=== PATIENT | male | born 1955 | race Caucasian/White ===

== ENCOUNTER → 2018-08-08 | Outpatient (CLI) | payer BC ==
[~2018-08-08] MED LIST: ASPI-231 PO; ATE50T PO; ATOR20TA50 PO; BENA40TA PO; FURO40TA PO; GABA300C11 OR; GLIP-116 PO; NOR10T PO; RANI300C7 PO; TAM04C PO; TEMA30CA PO; TRAM50TA2 PO
[2018-08-08 11:45] LABS: Basophils # (auto) 0 uL; Eosinophils # (auto) 0.1 uL; Hematocrit 36.3 % (41.0-53.0); Lymphocytes # (auto) 0.7 uL; Monocytes # (auto) 0.5 uL; Neutrophils # (auto) 3.2 uL
[2018-08-08 11:48] LABS: Basophils % (auto) 0.7 % (0.0-2.0); Eosinophils % (auto) 2.5 % (0.0-7.0); Hemoglobin 11.5 g/dL (13.5-17.5); Lymphocytes % (auto) 15.9 % (10.0-50.0); Mean Corpuscular Hemoglobin 26.5 pg (28.0-32.0); Mean Corpuscular Hgb Conc. 31.8 g/dL (32.0-36.0); Mean Corpuscular Volume 83.3 fL (80.0-100.0); Monocytes % (auto) 10.9 % (0.0-12.0); Nucleated Red Blood Cells % 0.1 %; Platelet Count (auto) 125 10^3/uL (140-450); Red Blood Cells 4.35 10^6/uL (4.5-5.90); Red Cell Distribution Width 18.2 % (11.8-14.3); White Blood Cell 4.6 10^3/uL (4.4-10.8)
[2018-08-08 12:00] LABS: Urine Bacteria NONE SEEN /hpf (None Seen); Urine Blood Negative /uL (Negative); Urine Mucus FEW (None Seen); Urine Specific Gravity 1.024 (1.001-1.035); Urine WBC 2 /hpf (0 - 3)
[2018-08-08 12:11] LABS: Albumin 2.8 g/dL (3.4-5.0); Calcium 8.3 mg/dL (8.5-10.1); Potassium 4.2 mmol/L (3.5-5.1)
[2018-08-08 12:18] LABS: BUN/Creatinine Ratio 11.1; Bilirubin, Total 1.3 mg/dL (0.2-1.0)
== END | disposition home or self-care (01) ==
LOC: LAB 10:30
PROVIDERS: ATTEND Internal Medicine
DX: Z12.11 Encounter for screening for malignant neoplasm of colon (principal); I10 Essential (primary) hypertension; E11.9 Type 2 diabetes mellitus without complications
CPT/HCPCS: 36415; 80053; 80061; 81001; 82043; 83036; 84443; 85025

== ENCOUNTER → 2018-08-15 | Outpatient (CLI) | payer BC | END | disposition home or self-care (01) | LOC: LAB 12:56 | PROVIDERS: ATTEND Internal Medicine | DX: Z12.11 Encounter for screening for malignant neoplasm of colon (principal); I10 Essential (primary) hypertension; E11.9 Type 2 diabetes mellitus without complications | CPT/HCPCS: 82270 ==

== ENCOUNTER → 2018-08-22 | Outpatient (CLI) | payer BC ==
[2018-08-22 15:21] LABS: Basophils # (auto) 0 uL; Eosinophils # (auto) 0.1 uL; Eosinophils % (auto) 2.7 % (0.0-7.0); Hemoglobin 13.4 g/dL (13.5-17.5); Lymphocytes # (auto) 0.9 uL; Monocytes # (auto) 0.5 uL; Neutrophils # (auto) 3.3 uL; Red Cell Distribution Width 18.4 % (11.8-14.3); White Blood Cell 4.9 10^3/uL (4.4-10.8)
[2018-08-22 15:25] LABS: Basophils % (auto) 0.7 % (0.0-2.0); Lymphocytes % (auto) 18.1 % (10.0-50.0); Mean Corpuscular Hemoglobin 26.7 pg (28.0-32.0); Mean Corpuscular Hgb Conc. 31.8 g/dL (32.0-36.0); Mean Corpuscular Volume 84.1 fL (80.0-100.0); Monocytes % (auto) 10.4 % (0.0-12.0); Neutrophils % (auto) 68.1 % (37.0-80.0); Nucleated Red Blood Cells % 0.2 %; Platelet Count (auto) 155 10^3/uL (140-450)
[2018-08-22 15:42] LABS: Albumin 3.4 g/dL (3.4-5.0); Calcium 8.9 mg/dL (8.5-10.1); Potassium 3.8 mmol/L (3.5-5.1)
[2018-08-22 15:44] LABS: Bilirubin, Total 1.4 mg/dL (0.2-1.0); Total Protein 9.4 g/dL (6.4-8.2)
[2018-08-25 11:45] LABS: Protein, Urine 9.9 mg/dL (0.0-11.9)
[2018-08-25 12:13] LABS: 24 Hr. Total Protein, Urine 133.6 mg/24 Hr (<149.1)
== END | disposition home or self-care (01) ==
LOC: LAB 14:40
PROVIDERS: ATTEND Internal Medicine
DX: I11.0 Hypertensive heart disease with heart failure (principal); I50.9 Heart failure, unspecified; E11.9 Type 2 diabetes mellitus without complications
CPT/HCPCS: 36415; 80053; 82607; 83497; 83540; 83615; 83880; 84156; 84260; 85025; 85045; 86880

== ENCOUNTER → 2018-08-30 | Outpatient (CLI) | payer BC ==
[2018-08-30 13:22] LABS: % Iron Saturation 9.1 % (20-55)
== END | disposition home or self-care (01) ==
LOC: LAB 11:24
PROVIDERS: ATTEND Internal Medicine
DX: D3A.019 Benign carcinoid tumor of the small intestine, unspecified portion (principal)
CPT/HCPCS: 36415; 82565; 83540; 83550; 84520

== ENCOUNTER → 2018-09-04 | Outpatient (CLI) | payer BC ==
[2018-09-04 13:55] LABS: Potassium 4.3 mmol/L (3.5-5.1)
[2018-09-04 14:03] LABS: BUN/Creatinine Ratio 12.1; Calcium 8.3 mg/dL (8.5-10.1)
== END | disposition home or self-care (01) ==
LOC: LAB 10:21
PROVIDERS: ATTEND Internal Medicine
DX: I11.0 Hypertensive heart disease with heart failure (principal); I50.9 Heart failure, unspecified; E11.9 Type 2 diabetes mellitus without complications
CPT/HCPCS: 36415; 80048; 83880

== ENCOUNTER → 2018-09-06 | Outpatient (CLI) | payer BC | END | disposition home or self-care (01) | LOC: XYW 07:57 | PROVIDERS: ATTEND Internal Medicine | DX: I10 Essential (primary) hypertension (principal) | CPT/HCPCS: 93306 ==

== ENCOUNTER → 2018-10-12 | Outpatient (CLI) | payer BC ==
[2018-10-12 16:49] LABS: INR 1.14 (0.9-1.15); Prothrombin Time 12.1 sec (9.27-12.13)
[2018-10-12 17:06] LABS: Albumin 2.9 g/dL (3.4-5.0); Bilirubin, Direct 0.5 mg/dL (0-0.2)
[2018-10-12 17:08] LABS: Bilirubin, Total 1.4 mg/dL (0.2-1.0); Total Protein 8.1 g/dL (6.4-8.2)
[2018-10-12 17:17] LABS: Hepatitis B Surface Antibody Negative
[2018-10-12 17:56] LABS: Hepatitis A Total Antibody Negative
[2018-10-12 18:05] LABS: Hepatitis B Surface Antigen Negative (Negative); Hepatitis C Antibody Negative (Negative)
[2018-10-12 18:06] LABS: Hepatitis B Core Total AB Negative
== END | disposition home or self-care (01) ==
LOC: LAB 15:55
PROVIDERS: ATTEND Internal Medicine Gastroenterology
DX: K26.9 Duodenal ulcer, unspecified as acute or chronic, without hemorrhage or perforation (principal); K74.60 Unspecified cirrhosis of liver
CPT/HCPCS: 36415; 80076; 82105; 85610; 86704; 86706; 86708; 86803; 87340

== ENCOUNTER → 2018-10-25 | Outpatient (CLI) | payer BC ==
[~2018-10-25] MED LIST changes: +ADENOSINE 79 MG in GIVE UN-DILUTED 0 ML IV ONE; +ADENOSINE 90 MG/30 ML INJ IV ONE; +DICY10CA12 PO; +LACT12LO EX; +METF-371 PO; +OMEP20TA PO; +TORS1TAB10 PO
[2018-10-25 10:10] VITALS: BP 134/63
[2018-10-25 10:45] VITALS: BP 123/56
--- NOTE | 2018-10-25 10:45 | NUR ---
PRE-OP FOR LEFT AND RIGHT HEART CATH FOR 10/26/18 DUE TO ABNORMAL ECHOCARDIOGRAM. EKG DONE AND COMPLETED. Pre-Op Discharge Summary: See e-MAR for any medications given for this visit. Pre-op orders received and carried out per MD of EKG, LABS and chest xrays. Patient given a copy of EKG with instructions to go to H out patient FOR FURTHER CARE.
[2018-10-25 12:29] LABS: Basophils # (auto) 0 uL; Eosinophils # (auto) 0.2 uL; Monocytes # (auto) 0.5 uL; Monocytes % (auto) 10.7 % (0.0-12.0); White Blood Cell 5.1 10^3/uL (4.4-10.8)
[2018-10-25 12:32] LABS: Basophils % (auto) 0.7 % (0.0-2.0); Eosinophils % (auto) 3.6 % (0.0-7.0); Hematocrit 37.5 % (41.0-53.0); Hemoglobin 11.8 g/dL (13.5-17.5); Lymphocytes % (auto) 18.9 % (10.0-50.0); Mean Corpuscular Hemoglobin 26.3 pg (28.0-32.0); Mean Corpuscular Hgb Conc. 31.6 g/dL (32.0-36.0); Mean Corpuscular Volume 83.5 fL (80.0-100.0); Neutrophils # (auto) 3.4 uL; Neutrophils % (auto) 66.1 % (37.0-80.0); Nucleated Red Blood Cells % 0.3 %; Platelet Count (auto) 181 10^3/uL (140-450); Red Cell Distribution Width 18.6 % (11.8-14.3)
[2018-10-25 13:03] LABS: INR 1.13 (0.9-1.15); Partial Thromboplastin Time 29.6 sec (23.78-33.04)
[2018-10-25 13:15] LABS: BUN/Creatinine Ratio 12.3; Calcium 8.9 mg/dL (8.5-10.1); Potassium 3.9 mmol/L (3.5-5.1)
== END | disposition home or self-care (01) ==
LOC: Rad HDHVI 09:53
PROVIDERS: ATTEND Internal Medicine Cardiovascular Disease
DX: Z01.818 Encounter for other preprocedural examination (principal); I11.0 Hypertensive heart disease with heart failure; I50.33 Acute on chronic diastolic (congestive) heart failure; E11.9 Type 2 diabetes mellitus without complications; I42.1 Obstructive hypertrophic cardiomyopathy; D64.9 Anemia, unspecified; R79.1 Abnormal coagulation profile
CPT/HCPCS: 36415; 71046; 78452; 80048; 85025; 85610; 85730; 93005; 96374; 96375; A9500; G0463; J0153

== ENCOUNTER 2018-10-26 07:33 | Day surgery (SDC) | payer BC ==
[~2018-10-26] VITALS: Ht 175.3 cm; Wt 136.1 kg
[~2018-10-26 07:33] MED LIST changes: -ADENOSINE 79 MG in GIVE UN-DILUTED 0 ML IV ONE; -ADENOSINE 90 MG/30 ML INJ IV ONE; -BENA40TA PO; -FURO40TA PO; -NOR10T PO; -RANI300C7 PO; -TEMA30CA PO; -TRAM50TA2 PO
[2018-10-26] MEDS ORDERED: LIDOCAINE 2%HCL (LOCAL ANESTH.) INJ 20ML MDV ONE ×2 (07:42→09:34)
[2018-10-26] MEDS ORDERED: HEPARIN IN NS 1000Units/500mL 1,500 ML ONE (07:42)
[2018-10-26] MEDS ORDERED: IOHEXOL 350 MG/ML 100ML IJ ONE (08:05)
[2018-10-26] MEDS ORDERED: ANGIOMAX 250 MG VIAL IV ONE (08:57)
[2018-10-26] MEDS ORDERED: VERAPAMIL 2.5MG/ML INJ 2ML VIAL IV ONE (08:57)
[2018-10-26] MEDS ORDERED: MIDAZOLAM HCL 1MG/1ML-2 ML VIAL ONE (08:58)
[2018-10-26] MEDS ORDERED: SODIUM CHL 0.9% 0 ML ONE (08:58)
[2018-10-26] MEDS ORDERED: fentaNYL CITRATE 100 MCG/2 ML VL ONE (08:58)
[2018-10-26] MEDS ORDERED: NITROGLYCERIN 5MG/ML 10ML VIAL IV ONE (09:02)
[2018-10-26] MEDS ORDERED: NITROGLYCERIN 0.4MG/DOSE SPRAY 4.9GM ONE (09:35)
[2018-10-26] MEDS ORDERED: HYDROmorphone HCL 2 MG/ML VL ONE (09:43)
== END 2018-10-26 12:20 | disposition home or self-care (01) ==
LOC: CATH 07:33
PROVIDERS: ATTEND Internal Medicine Cardiovascular Disease
DX: R94.39 Abnormal result of other cardiovascular function study (principal); R07.9 Chest pain, unspecified; R06.02 Shortness of breath; E66.9 Obesity, unspecified; I10 Essential (primary) hypertension; E78.00 Pure hypercholesterolemia, unspecified; E11.51 Type 2 diabetes mellitus with diabetic peripheral angiopathy without gangrene; J44.9 Chronic obstructive pulmonary disease, unspecified; E11.40 Type 2 diabetes mellitus with diabetic neuropathy, unspecified; E78.5 Hyperlipidemia, unspecified; Z82.3 Family history of stroke; Z82.49 Family history of ischemic heart disease and other diseases of the circulatory system; Z83.3 Family history of diabetes mellitus; Z80.0 Family history of malignant neoplasm of digestive organs; Z80.9 Family history of malignant neoplasm, unspecified; Z82.5 Family history of asthma and other chronic lower respiratory diseases; Z87.891 Personal history of nicotine dependence; Z79.82 Long term (current) use of aspirin; Z79.899 Other long term (current) drug therapy
CPT/HCPCS: 93460; A6257; C1751; C1760; C1769; C1894; J1170; J1644; J2250; J3010; J3490; J7030; Q9967; 99152

== ENCOUNTER → 2018-10-30 | Outpatient (CLI) | payer BC | END | disposition home or self-care (01) | LOC: LAB 12:19 | PROVIDERS: ATTEND Internal Medicine | DX: Z12.5 Encounter for screening for malignant neoplasm of prostate (principal) | CPT/HCPCS: 84153 ==

== ENCOUNTER → 2018-12-21 | Outpatient (CLI) | payer BC ==
[2018-12-21 15:21] LABS: Basophils # (auto) 0 uL; Eosinophils # (auto) 0.2 uL; Hematocrit 37.7 % (41.0-53.0); Hemoglobin 11.7 g/dL (13.5-17.5); Lymphocytes # (auto) 0.7 uL; Mean Corpuscular Hemoglobin 25.2 pg (28.0-32.0); Neutrophils # (auto) 3.1 uL
[2018-12-21 15:23] LABS: Eosinophils % (auto) 4.2 % (0.0-7.0); Lymphocytes % (auto) 14.7 % (10.0-50.0); Mean Corpuscular Volume 81.4 fL (80.0-100.0); Monocytes # (auto) 0.5 uL; Monocytes % (auto) 11.1 % (0.0-12.0); Nucleated Red Blood Cells % 0.1 %; Platelet Count (auto) 196 10^3/uL (140-450); Red Blood Cells 4.63 10^6/uL (4.5-5.90); Red Cell Distribution Width 17.4 % (11.8-14.3); White Blood Cell 4.6 10^3/uL (4.4-10.8)
[2018-12-21 15:41] LABS: Calcium 8.4 mg/dL (8.5-10.1); Potassium 3.7 mmol/L (3.5-5.1)
[2018-12-21 15:44] LABS: BUN/Creatinine Ratio 9.7; Bilirubin, Total 1.4 mg/dL (0.2-1.0); Total Protein 8.5 g/dL (6.4-8.2)
== END | disposition home or self-care (01) ==
LOC: LAB 14:17
PROVIDERS: ATTEND Internal Medicine
DX: D64.9 Anemia, unspecified (principal); I10 Essential (primary) hypertension
CPT/HCPCS: 36415; 80053; 83615; 84260; 85025

== ENCOUNTER → 2018-12-25 | Day surgery (SDC) | payer BC ==
[2018-12-21 15:22] LABS: Basophils # (auto) 0 uL; Eosinophils # (auto) 0.2 uL; Neutrophils # (auto) 3.2 uL; Platelet Count (auto) 197 10^3/uL (140-450); White Blood Cell 4.5 10^3/uL (4.4-10.8)
[2018-12-21 15:24] LABS: Basophils % (auto) 0.8 % (0.0-2.0); Eosinophils % (auto) 4.2 % (0.0-7.0); Hematocrit 37.9 % (41.0-53.0); Hemoglobin 11.7 g/dL (13.5-17.5); Lymphocytes # (auto) 0.6 uL; Lymphocytes % (auto) 13.7 % (10.0-50.0); Mean Corpuscular Hemoglobin 25.1 pg (28.0-32.0); Mean Corpuscular Hgb Conc. 30.9 g/dL (32.0-36.0); Mean Corpuscular Volume 81.2 fL (80.0-100.0); Monocytes # (auto) 0.5 uL; Monocytes % (auto) 10.9 % (0.0-12.0); Neutrophils % (auto) 70.4 % (37.0-80.0); Nucleated Red Blood Cells % 0.1 %; Red Blood Cells 4.66 10^6/uL (4.5-5.90); Red Cell Distribution Width 17.9 % (11.8-14.3)
[2018-12-21 15:40] LABS: Calcium 8.5 mg/dL (8.5-10.1); Potassium 3.7 mmol/L (3.5-5.1)
[2018-12-21 15:43] LABS: Bilirubin, Total 1.4 mg/dL (0.2-1.0); Total Protein 8.5 g/dL (6.4-8.2)
[2018-12-21 16:48] LABS: INR 1.13 (0.9-1.15); Partial Thromboplastin Time 30.6 sec (23.78-33.04)
[2018-12-22 16:52] LABS: Urine Bacteria NONE SEEN /hpf (None Seen); Urine Blood Negative /uL (Negative); Urine Mucus FEW (None Seen); Urine WBC 2 /hpf (0 - 3)
[~2018-12-25] VITALS: Ht 175.3 cm; Wt 138.3 kg
[~2018-12-25] MED LIST changes: +AML5T PO; +CICL8SOL3 EX; +GLYCOPYRROLATE 0.2 MG/ML 1ML VIAL ONE; +HYD1TP TOP; +HYDROmorphone HCL 2 MG/ML VL IV PRN; +LIDOCAINE 1% INJ PF 5ML AMP ONE; +LIDOCAINE HCL 100 MG/5ML (2%) SYRG INJ IV ONE; +LORA-352 PO; +MIDAZOLAM HCL 1MG/1ML-2 ML VIAL ONE; +NALOXONE HCL 0.4 MG/ML VIAL IV PRN; +OCTR50IN IJ; +ONDANSETRON HCL 4 MG/2 ML VIAL IV ONE; +PANT40TA2 PO; +POTA1TAB61 PO; +PROPOFOL 10 MG/ML 20 ML IV ONE; +TRIA0.1O TOP; +diphenhdrAMINE HCL 50 MG/1 ML VL ONE; +hydrALAZINE HCL 20 MG/ML VL IV PRN
[2018-12-25 12:49] VITALS: BP 133/66
== END | disposition home or self-care (01) ==
LOC: GI 09:17
PROVIDERS: ATTEND Internal Medicine Gastroenterology
DX: Z12.11 Encounter for screening for malignant neoplasm of colon (principal); D12.0 Benign neoplasm of cecum; D12.3 Benign neoplasm of transverse colon; K31.7 Polyp of stomach and duodenum; E66.01 Morbid (severe) obesity due to excess calories; M19.90 Unspecified osteoarthritis, unspecified site; J44.9 Chronic obstructive pulmonary disease, unspecified; E11.9 Type 2 diabetes mellitus without complications; K21.9 Gastro-esophageal reflux disease without esophagitis; K27.9 Peptic ulcer, site unspecified, unspecified as acute or chronic, without hemorrhage or perforation; I11.0 Hypertensive heart disease with heart failure; I50.9 Heart failure, unspecified; I42.8 Other cardiomyopathies; D64.9 Anemia, unspecified; Z68.42 Body mass index [BMI] 45.0-49.9, adult; Z85.068 Personal history of other malignant neoplasm of small intestine; Z79.82 Long term (current) use of aspirin; Z79.899 Other long term (current) drug therapy; Z98.890 Other specified postprocedural states
CPT/HCPCS: 36415; 43239; 45380; 45385; 80053; 81001; 82962; 85025; 85610; 85730; 88305; 88342; A6257; J1200; J2250; J2704; J7030

== ENCOUNTER 2019-01-01 09:28 | Inpatient (IN) | payer BC ==
[~2019-01-01] VITALS: Ht 175.3 cm; Wt 132.0 kg
[~2019-01-01 09:28] MED LIST changes: -AML5T PO; -CICL8SOL3 EX; -GLYCOPYRROLATE 0.2 MG/ML 1ML VIAL ONE; -HYD1TP TOP; -HYDROmorphone HCL 2 MG/ML VL IV PRN; -LIDOCAINE 1% INJ PF 5ML AMP ONE; -LIDOCAINE HCL 100 MG/5ML (2%) SYRG INJ IV ONE; -LORA-352 PO; -MIDAZOLAM HCL 1MG/1ML-2 ML VIAL ONE; -NALOXONE HCL 0.4 MG/ML VIAL IV PRN; -OCTR50IN IJ; -ONDANSETRON HCL 4 MG/2 ML VIAL IV ONE; -PANT40TA2 PO; -POTA1TAB61 PO; -PROPOFOL 10 MG/ML 20 ML IV ONE; -TRIA0.1O TOP; -diphenhdrAMINE HCL 50 MG/1 ML VL ONE; -hydrALAZINE HCL 20 MG/ML VL IV PRN
[2019-01-01] MEDS ORDERED: DEXAMETHASONE SOD PHOS 10MG/1ML VIAL INJ ONE (09:36)
[2019-01-01 10:52] LABS: Platelet Count (auto) 207 10^3/uL (140-450)
[2019-01-01 10:54] LABS: Hematocrit 38.9 % (41.0-53.0); Hemoglobin 12.6 g/dL (13.5-17.5); Mean Corpuscular Hemoglobin 26.3 pg (28.0-32.0); Mean Corpuscular Hgb Conc. 32.4 g/dL (32.0-36.0); Mean Corpuscular Volume 81.1 fL (80.0-100.0); Red Blood Cells 4.79 10^6/uL (4.5-5.90); Red Cell Distribution Width 19.7 % (11.8-14.3); White Blood Cell 7.2 10^3/uL (4.4-10.8)
[2019-01-01] MEDS ORDERED: SODIUM CHLORIDE 0.9% 1,000 ML IV ONE (10:54)
[2019-01-01] MEDS ORDERED: HYDROmorphone HCL 2 MG/ML VL IV ONE (11:00)
[2019-01-01] MEDS ORDERED: ONDANSETRON HCL 4 MG/2 ML VIAL IV ONE (11:00)
[2019-01-01 11:13] LABS: Basophils % (manual) 0 (0.0-2.0); Blast Cells 0; Promyelocytes % 0; Reactive Lymphocytes 0
[2019-01-01 11:16] LABS: Albumin 2.7 g/dL (3.4-5.0); Calcium 8.2 mg/dL (8.5-10.1); Potassium 3.5 mmol/L (3.5-5.1)
[2019-01-01 11:20] LABS: BUN/Creatinine Ratio 19.2; Bilirubin, Total 1.3 mg/dL (0.2-1.0); Total Protein 7.8 g/dL (6.4-8.2)
[2019-01-01 11:52] LABS: INR 1.26 (0.9-1.15); Partial Thromboplastin Time 29.3 sec (23.78-33.04); Prothrombin Time 13.3 sec (9.27-12.13)
[2019-01-01 12:08] LABS: Band Neutrophils % (manual) 6; Eosinophils % (manual) 3 (0-7); Lymphocytes % (manual) 11 (10.0-50.0); Metamyelocytes % 2; Monocytes % (manual) 17 (0-12); Myelocytes % 2
[2019-01-01] MEDS ORDERED: FUROSEMIDE 40 MG/4 ML VIAL IV ONE (12:45)
[2019-01-01] MEDS ORDERED: HYDROcodone-ACET 5/325MG TAB PO PRN (12:45)
[2019-01-01] MEDS ORDERED: DEXTROSE (50%) 50ML SYRG IV PRN (12:45)
[2019-01-01] MEDS ORDERED: POTASSIUM CHL 20 Meq TABLET PO ONE (12:45)
[2019-01-01] MEDS ORDERED: PANTOPRAZOLE 40 MG/10 ML VIAL IV ONE (12:45)
[2019-01-01] MEDS ORDERED: ONDANSETRON HCL 4 MG/2 ML VIAL IV PRN (12:45)
[2019-01-01] MEDS ORDERED: NITROGLYCERIN 0.4 MG SL TAB SL PRN (12:45)
[2019-01-01] MEDS ORDERED: MORPHINE SULFATE 4 MG/ML SYR/VIAL IV PRN ×2 (12:45)
[2019-01-01] MEDS ORDERED: IOHEXOL 300 MG/ML 100ML BOTTLE IJ ONE ×2 (12:46→15:30)
[2019-01-01] MEDS ORDERED: GASTROGRAFIN 30 ML SOL ONE (12:46)
[2019-01-01] MEDS: GABAPENTIN 300 MG CAP PO SCH ×2 (13:59→21:25)
[2019-01-01 16:08] LABS: Urine Bacteria NONE SEEN /hpf (None Seen); Urine Blood TRACE /uL (Negative); Urine Mucus FEW (None Seen); Urine Specific Gravity 1.021 (1.001-1.035); Urine WBC 3 /hpf (0 - 3)
[2019-01-01] MEDS: ACCU-CHEK COMFORT CURVE STRIP VI SCH ×2 (18:28→21:25)
[2019-01-01] MEDS: InsuLIN REG 1unit/0.01ml Soln (100units/ml) SC SCH ×2 (18:37→21:30)
[2019-01-01] MEDS: TAMSULOSIN HYDROCHLORIDE 0.4 MG CAP PO SCH (18:37)
--- NOTE | 2019-01-01 19:50 | NUR ---
Telemetry admit from ER [facility] admitted to Telemetry unit after SBAR received. Patient oriented to Joyce helms RN, unit, room, bed, and unit policies regarding patient care and visiting hours. Patient placed on bedside oxygen, weighed by bedscale and encouraged to call if they need something. All questions and concerns addressed, patient verbalized understanding. Note: FALL PRECAUTIONS INITIATED. MERCADO DRAINING TO GRAVITY.
[2019-01-01 20:00] VITALS: BP 129/66
[2019-01-01] MEDS: ATORVASTATIN 20 MG TAB PO SCH (21:25)
[2019-01-01 22:00] VITALS: BP 129/66
[2019-01-02] MEDS ORDERED: CICL8SOL3 EX (00:19)
[2019-01-02] MEDS ORDERED: AML5T PO (00:19)
[2019-01-02] MEDS ORDERED: PANT40TA2 PO (00:19)
[2019-01-02] MEDS ORDERED: HYD1TP TOP (00:19)
[2019-01-02] MEDS ORDERED: LORA-352 PO (00:19)
[2019-01-02] MEDS ORDERED: TRIA0.1O TOP (00:19)
[2019-01-02] MEDS ORDERED: POTA1TAB61 PO (00:19)
[2019-01-02] MEDS ORDERED: OCTR50IN IJ (00:21)
--- NOTE | 2019-01-02 01:20 | NUR ---
RESTING ON BED, DENIES PAIN OR DISCOMFORT AT THIS TIME. ENCOURAGED TO CALL IF IN NEED OF ANYTHING. CONTINUE PATIENT CARE.
[2019-01-02 05:00] VITALS: BP 133/62
[2019-01-02] MEDS: InsuLIN REG 1unit/0.01ml Soln (100units/ml) SC SCH ×3 (06:00→17:39)
[2019-01-02] MEDS: ACCU-CHEK COMFORT CURVE STRIP VI SCH ×3 (06:03→17:39)
[2019-01-02] MEDS: GABAPENTIN 300 MG CAP PO SCH ×3 (06:03→22:44)
[2019-01-02 06:21] LABS: Hemoglobin 10.4 g/dL (13.5-17.5); White Blood Cell 4.8 10^3/uL (4.4-10.8)
[2019-01-02 06:23] LABS: Hematocrit 32.7 % (41.0-53.0); Mean Corpuscular Hemoglobin 25.9 pg (28.0-32.0); Mean Corpuscular Hgb Conc. 31.8 g/dL (32.0-36.0); Mean Corpuscular Volume 81.4 fL (80.0-100.0); Platelet Count (auto) 151 10^3/uL (140-450); Red Blood Cells 4.02 10^6/uL (4.5-5.90); Red Cell Distribution Width 19.4 % (11.8-14.3)
[2019-01-02 06:43] LABS: Albumin 2.3 g/dL (3.4-5.0); Calcium 7.5 mg/dL (8.5-10.1)
[2019-01-02 06:48] LABS: Bilirubin, Total 0.8 mg/dL (0.2-1.0); Total Protein 6.5 g/dL (6.4-8.2)
[2019-01-02 06:56] LABS: Band Neutrophils % (manual) 0; Basophils % (manual) 0 (0.0-2.0); Blast Cells 0; Metamyelocytes % 0; Promyelocytes % 0; Reactive Lymphocytes 0
[2019-01-02 07:03] LABS: Potassium 2.9 mmol/L (3.5-5.1)
[2019-01-02] MEDS ORDERED: POTASSIUM CHL 20 Meq TABLET PO ONE (07:15)
--- NOTE | 2019-01-02 08:00 | NUR ---
Opening Shift Note Assumed care of patient, awake and alert. No S/S of distress/SOB or pain. Tele# 17, sinus rhythm @ 67 bpm. IV to right antecubital, 18 gauge, patent and saline locked. Urethral Keys catheter draining pink urine with clots to gravity. Instructed on POC and to call for assist PRN, will continue to monitor for changes Q1hr and PRN.
[2019-01-02 08:08] LABS: Eosinophils % (manual) 1 (0-7); Lymphocytes % (manual) 13 (10.0-50.0); Monocytes % (manual) 14 (0-12); Myelocytes % 1
[2019-01-02 08:35] VITALS: BP 143/69
[2019-01-02] MEDS ORDERED: SPIRONOLACTONE 25 MG TAB PO ONE (11:15)
--- NOTE | 2019-01-02 11:16 | NUR ---
Nutrition Consult/assessment Notes Please see attached link for complete assessment Est. Needs ABW [id number] kcal (17-20 kcal/kgBW), 106-116 gms pro (1.0-1.1 gms/kgBW). Will continue to monitor pertinent labs and reassess nutrient needs prn Addendum: 01/02/19 at [address] Amended: Links added.
[2019-01-02] MEDS: PANTOPRAZOLE 40 MG/10 ML VIAL IV SCH (11:35)
[2019-01-02] MEDS: FUROSEMIDE 40 MG/4 ML VIAL IV SCH (11:35)
[2019-01-02] MEDS: ATENOLOL 50 MG TAB PO SCH (11:36)
[2019-01-02] MEDS: POTASSIUM CHL 20 Meq TABLET PO SCH (12:16)
[2019-01-02 13:00] VITALS: BP 146/71
[2019-01-02 16:46] VITALS: BP 148/75
[2019-01-02] MEDS: SPIRONOLACTONE 25 MG TAB PO SCH (18:20)
[2019-01-02] MEDS: TAMSULOSIN HYDROCHLORIDE 0.4 MG CAP PO SCH (18:20)
--- NOTE | 2019-01-02 19:11 | NUR ---
Care endorsed to REBECCA Dalton, night nurse.
--- NOTE | 2019-01-02 19:30 | NUR ---
Opening Shift Note Assumed care of patient, awake and alert. No S/S of distress/SOB. Complains of pain from mahan 10/10. Deflated balloon and checked placement and refilled balloon with saline.Requesring pain meds. Offered morphine and states, " I had a bad reaction to morphine before, there were bugs crawling everywhere." Had dilauded in ER with no adverse effects. Will page MD for new orders. at bedside. Instructed on POC and to call for assist PRN, will continue to monitor for changes Q1hr and PRN.
[2019-01-02 20:00] VITALS: BP 143/69
--- NOTE | 2019-01-02 20:00 | NUR ---
Paged hospitalist for med orders
[2019-01-02] MEDS: KETOROLAC TROMETH 30 MG/ML 1ML VIAL IV PRN (21:14)
[2019-01-02 21:37] VITALS: BP 131/67
[2019-01-02] MEDS: ATORVASTATIN 20 MG TAB PO SCH (22:45)
[2019-01-03] VITALS (7 sets, daily range): BP systolic 108–143; BP diastolic 60–74
--- NOTE | 2019-01-03 | NUR ---
New orders for toradol q6 prn. Patient verbalizes feeling much better since i checked the mahan placement. went home.Call light within reach
[2019-01-03] MEDS: InsuLIN REG 1unit/0.01ml Soln (100units/ml) SC SCH ×4 (00:01→17:30)
[2019-01-03] MEDS: ACCU-CHEK COMFORT CURVE STRIP VI SCH ×4 (00:02→17:30)
[2019-01-03] MEDS: GABAPENTIN 300 MG CAP PO SCH ×3 (06:25→21:58)
[2019-01-03] MEDS: SPIRONOLACTONE 25 MG TAB PO SCH ×2 (06:25→17:30)
[2019-01-03] MEDS: KETOROLAC TROMETH 30 MG/ML 1ML VIAL IV PRN (06:26)
--- NOTE | 2019-01-03 08:00 | NUR ---
ASSESSMENT NOTE PT IS ALERT ORIENTED X4, RESTING IN BED COMFORTABLY, IN LOW RASMUSSEN POSITION, PT IS VERY BIG AND TALL, PT HAS LARGE FIRM ABDOMEN, WITH 3+ EDEMA ON BOTH LOWER EXTREMITIES,ABLE TO VERBALIS HIS NEEDS, SELF REPOSITION NEEDED, CALL LIGHT WITHIN REACH.
[2019-01-03 08:40] LABS: BUN/Creatinine Ratio 18.3; Calcium 7.7 mg/dL (8.5-10.1); Potassium 3.3 mmol/L (3.5-5.1)
[2019-01-03] MEDS: FUROSEMIDE 40 MG/4 ML VIAL IV SCH ×2 (08:45→21:59)
[2019-01-03] MEDS: POTASSIUM CHL 20 Meq TABLET PO SCH ×2 (08:45→21:59)
[2019-01-03] MEDS: PANTOPRAZOLE 40 MG/10 ML VIAL IV SCH (08:45)
--- NOTE | 2019-01-03 09:55 | NUR ---
OUT TO RADIOLOGY BY HOSPITAL BED, WITH REBECCA HECTOR, NO DISTRESS NOTED
[2019-01-03] MEDS: ATENOLOL 50 MG TAB PO SCH (10:00)
--- NOTE | 2019-01-03 10:25 | NUR ---
FAMILY PT'S CALLED TO CHECK ON HER
--- NOTE | 2019-01-03 10:35 | NUR ---
PT IN ULTRASOUND FOR A PARACENTESIS. VSS 129/66-66-16-93%. 1050:125/53-66-17-93%. 1105: 121/52-59-18-94%. FINISHED WITH PROCEDURE. PT TOLERATED WELL. BANDAID OVER SITE. NO BLEEDING. REPORT CALLED TO HAMLET FERNANDEZ. SPECIMEN TAKEN TO LAB/PATHOLOGY
[2019-01-03] MEDS ORDERED: POTASSIUM CHL 20 Meq TABLET PO ONE (11:15)
--- NOTE | 2019-01-03 11:30 | NUR ---
PT IS BACK TO HIS ROOM BY HOSPITAL BED, ALERT ORIENTED X4, ABDOMEN APPEAR MORE COMFORTABLE, PT STATED < I FEEL MUCH BETTER>
--- NOTE | 2019-01-03 12:30 | NUR ---
FAMILY PTIS AT BED SIDE.
--- NOTE | 2019-01-03 13:00 | NUR ---
PT TOLERATED LUNCH WELL, CONTINUE MONITORING.
[2019-01-03] MEDS: TAMSULOSIN HYDROCHLORIDE 0.4 MG CAP PO SCH (17:31)
--- NOTE | 2019-01-03 18:13 | NUR ---
PT CONTINUE STABLE, NO DISTRESS NOTED, PT'S FRIENDS AT HIS SIDE.
[2019-01-03] MEDS: ATORVASTATIN 20 MG TAB PO SCH (21:58)
--- NOTE | 2019-01-03 22:00 | NUR ---
Patient and requesting he take a shower. Explained i needed an order but patient did not want to wait. will be with him during shower. Called [facility] to notify them he will be off tele while showering. Covered IV. Supplies given. Linens and gown changed after shower. Shaved his face at sink after shower as well.Tolerated shower well with wifes assistance. Replaced tele. No complaints of pain at this time.
[2019-01-04] MEDS: KETOROLAC TROMETH 30 MG/ML 1ML VIAL IV PRN (01:17)
--- NOTE | 2019-01-04 04:45 | NUR ---
Awake alert and oriented. at bedside. Edema significantly less than yesterdays observation. Keys patent and draining mikhail colored urine. Less hematuria than yesterday as well. IV patent and saline locked to R AC. Aware of fluid restriction. Bed low and call light within reach Addendum: 01/04/19 at 0452 by MIKHAIL PARRA RN Opening shift note. Wrong time.Assessment done 01/03 @ 1930.
[2019-01-04 05:00] VITALS: BP 119/58
[2019-01-04] MEDS: GABAPENTIN 300 MG CAP PO SCH ×3 (06:17→22:13)
[2019-01-04] MEDS: ACCU-CHEK COMFORT CURVE STRIP VI SCH ×5 (06:17→23:55)
[2019-01-04] MEDS: InsuLIN REG 1unit/0.01ml Soln (100units/ml) SC SCH ×4 (06:17→18:00)
[2019-01-04] MEDS: SPIRONOLACTONE 25 MG TAB PO SCH ×2 (06:17→18:11)
[2019-01-04 06:29] LABS: Basophils # (auto) 0 uL; Basophils % (auto) 0.3 % (0.0-2.0); Eosinophils # (auto) 0.1 uL; Hemoglobin 10.9 g/dL (13.5-17.5); Lymphocytes # (auto) 0.8 uL; Monocytes # (auto) 0.7 uL
[2019-01-04 06:34] LABS: Lymphocytes % (auto) 12.6 % (10.0-50.0); Mean Corpuscular Hemoglobin 26.2 pg (28.0-32.0); Mean Corpuscular Hgb Conc. 31.9 g/dL (32.0-36.0); Monocytes % (auto) 10.7 % (0.0-12.0); Neutrophils # (auto) 4.8 uL; Neutrophils % (auto) 74.4 % (37.0-80.0); Platelet Count (auto) 163 10^3/uL (140-450); Red Blood Cells 4.15 10^6/uL (4.5-5.90); Red Cell Distribution Width 19.4 % (11.8-14.3); White Blood Cell 6.5 10^3/uL (4.4-10.8)
[2019-01-04 06:54] LABS: Albumin 2.3 g/dL (3.4-5.0); Calcium 7.4 mg/dL (8.5-10.1); Potassium 3.9 mmol/L (3.5-5.1)
[2019-01-04 06:56] LABS: BUN/Creatinine Ratio 16.5
[2019-01-04 07:00] LABS: Bilirubin, Total 0.9 mg/dL (0.2-1.0); Total Protein 6.6 g/dL (6.4-8.2)
[2019-01-04 08:00] VITALS: BP_SYST 116; BP_SYST 130; BP_DIAS 68; BP_DIAS 71
--- NOTE | 2019-01-04 08:00 | NUR ---
ASSESSMENT NOTE PT IS ALERT ORIENTED X4, RESTING IN BED COMFORTABLY, IN LOW RASMUSSEN POSITION, PT IS VERY BIG AND TALL, PT HAS LARGE SOFT ABDOMEN, WITH 3+ EDEMA ON BOTH LOWER EXTREMITIES,ABLE TO VERBALIS HIS NEEDS, SELF REPOSITION NEEDED, CALL LIGHT WITHIN REACH URINE IS MORE DARK ORANGE TODAY, CALL LIGHT WITHIN REACH, PAIN 0/10 AT THIS TIME.
[2019-01-04] MEDS: POTASSIUM CHL 20 Meq TABLET PO SCH ×2 (09:00→22:13)
[2019-01-04] MEDS: PANTOPRAZOLE 40 MG/10 ML VIAL IV SCH (09:01)
[2019-01-04] MEDS: ATENOLOL 50 MG TAB PO SCH (09:01)
[2019-01-04] MEDS: FUROSEMIDE 40 MG/4 ML VIAL IV SCH ×2 (09:02→22:13)
[2019-01-04 12:00] VITALS: BP 123/58
[2019-01-04] MEDS ORDERED: MORPHINE SULFATE 4 MG/ML SYR/VIAL IV PRN ×2 (12:00)
[2019-01-04] MEDS ORDERED: HYDROcodone-ACET 5/325MG TAB PO PRN (12:00)
[2019-01-04] MEDS ORDERED: ALBUMIN 25% 50 ML IV ONE (12:00)
--- NOTE | 2019-01-04 12:50 | NUR ---
DR ALVARADO AT BED SIDE FOLLOWING UP ON PT, DISCUSSING WITH PT THE PLAN OF CARE.
--- NOTE | 2019-01-04 12:55 | NUR ---
Mahan catheter dc'd Order to discontinue mahan catheter. Mahan dc'd with clean technique following deflation of balloon. Patient tolerated well with no complaints of pain. Continue care.
--- NOTE | 2019-01-04 13:00 | NUR ---
FAMILY PT'S AT BED SIDE
--- NOTE | 2019-01-04 13:40 | NUR ---
PT CONTINUE STABLE, CONTINUE MONITORING
--- NOTE | 2019-01-04 13:43 | NUR ---
PT CONTINUE STABLE, NO DISTRESS NOTED, ELEVATING BOTH FEET, CONTINUE MONITORING
--- NOTE | 2019-01-04 14:30 | NUR ---
Opening Shift Note Assumed care of the patient from REBECCA Grewal. The patient is resting, but opening his eyes and responds appropriately to questions. The patient's lung sound are clear and bowel sounds are normal. The patient's skin is intact, but feet are edematous and flaking skin. The patient is A&Ox4, no signs or symptoms of distress. Dobutamine is running at this time. Educated the patient on POC and patient verbalized understanding. The patient's call light is within reach and bed is in the lowest, locked position. Will round hourly and continue to monitor. Addendum: 01/04/19 at 1559 by JUAN MARIE RN wrong patient
--- NOTE | 2019-01-04 14:30 | NUR ---
Opening Shift Note Assumed care of the patient from the REBECCA Grewal. The patient's A&Ox4, no signs or symptoms of distress. The patient's abdomen is large and soft, bowel sounds are normal. The patient's lung sounds are clear. Feet are edematous, +1 pitting edema. Patient states they were worse yesterday. Educated the patient on POC and patient verbalized understanding. The patient's call light is within reach and bed is in the lowest, locked position. Will round hourly and continue to monitor.
[2019-01-04 17:00] VITALS: BP 127/70
[2019-01-04] MEDS: TAMSULOSIN HYDROCHLORIDE 0.4 MG CAP PO SCH (18:11)
--- NOTE | 2019-01-04 19:55 | NUR ---
OPENING NOTES REPORT RECEIVED FROM DAY SHIFT RN. PT IS ALERT AND ORIENTATED X 4 WITH NO S/S OF DISTRESS BUT 6/10 PAIN. PT IS ON O2 VIA N/C AT 2L. BED IS IN LOWEST POSITION WITH SIDE RAILS UP X 2. BED BRAKES ARE LOCKED AND IN LOWEST POSITION. HOB IS 30 DEGREES. DISCUSSED POC WITH PT, PT VERBALIZED UNDERSTANDING. WILL MONITOR Q 1HR.
[2019-01-04 20:00] VITALS: BP 130/71
[2019-01-04 21:39] VITALS: BP 155/82
[2019-01-04] MEDS: ATORVASTATIN 20 MG TAB PO SCH (22:13)
[2019-01-05] MEDS: InsuLIN REG 1unit/0.01ml Soln (100units/ml) SC SCH ×3 (00:07→12:27)
[2019-01-05 05:13] VITALS: BP 124/54
[2019-01-05] MEDS: SPIRONOLACTONE 25 MG TAB PO SCH (06:10)
[2019-01-05] MEDS: GABAPENTIN 300 MG CAP PO SCH ×2 (06:10→14:43)
[2019-01-05] MEDS: ACCU-CHEK COMFORT CURVE STRIP VI SCH ×2 (06:10→12:26)
[2019-01-05 07:45] LABS: Calcium 8.3 mg/dL (8.5-10.1); Potassium 4.2 mmol/L (3.5-5.1)
[2019-01-05 07:53] VITALS: BP 130/71
[2019-01-05 08:00] VITALS: BP 129/58
--- NOTE | 2019-01-05 08:00 | NUR ---
AWAKE ALERT ORIENTED TIMES 4 DENIES ANY PAIN OR SHORTNESS OF BREATH AT THIS TIME EDEMA PLUS 3 TO LOWER EXTREMITIES.
[2019-01-05] MEDS ORDERED: PANTOPRAZOLE 40 MG TAB PO SCH (10:00)
[2019-01-05] MEDS: ATENOLOL 50 MG TAB PO SCH (10:00)
[2019-01-05] MEDS: FUROSEMIDE 40 MG/4 ML VIAL IV SCH (10:44)
[2019-01-05] MEDS: POTASSIUM CHL 20 Meq TABLET PO SCH (10:45)
--- NOTE | 2019-01-05 11:45 | NUR ---
DR LINN AT BEDSIDE SPOKE TO PATIENT ABOUT DISCHARGE PLAN. HE ALSO CALLED THE PATIENTS AND EXPLAINED DISCHARGE PLAN AND INSTRUCTIONS. PATIENT AND VERBALIZED UNDERSTANDING. PATIENT TO DECREASE 50 MG ATENOLOL TO ONCE A DAY FROM TWICE A DAY AND START ALDACTONE 50 MG BY MOUTH TWICE A DAY RESUME ALL OTHER HOME MEDICATION. 1200 ML FLUID RESTRICTION IN 24 HOURS.
[2019-01-05 12:00] VITALS: BP 141/65
[2019-01-05 12:37] VITALS: BP 129/58
--- NOTE | 2019-01-05 16:00 | NUR ---
IV DISCONTINUED DRESSING APPLIED TO SITE. PATIENT DRESSED AND WAITING FOR . NO SIGNS OF DISTRESS.
--- NOTE | 2019-01-05 16:55 | NUR ---
DISCHARGE INSTRUCTIONS GIVEN PATIENT VERBALIZED UNDERSTANDING.
== END 2019-01-05 17:20 | disposition home or self-care (01) | DRG 432 ==
LOC: ER 09:28 → TELE 12:42 → TELE-EAST 20:03
PROVIDERS: ADMIT Internal Medicine; ATTEND Internal Medicine
PROC: 0W9G3ZZ Drainage of Peritoneal Cavity, Percutaneous Approach (ICD-10-PCS; principal; 2019-01-03)
DX: K74.60 Unspecified cirrhosis of liver (principal); I50.33 Acute on chronic diastolic (congestive) heart failure; R18.8 Other ascites; E34.0 Carcinoid syndrome; E44.1 Mild protein-calorie malnutrition; Z68.41 Body mass index [BMI] 40.0-44.9, adult; I11.0 Hypertensive heart disease with heart failure; E66.01 Morbid (severe) obesity due to excess calories; E78.5 Hyperlipidemia, unspecified; E11.9 Type 2 diabetes mellitus without complications; E87.6 Hypokalemia; R19.7 Diarrhea, unspecified; K21.9 Gastro-esophageal reflux disease without esophagitis; Z82.3 Family history of stroke; Z82.49 Family history of ischemic heart disease and other diseases of the circulatory system; Z85.05 Personal history of malignant neoplasm of liver; Z91.14 Patient's other noncompliance with medication regimen; Z91.19 Patient's noncompliance with other medical treatment and regimen; Z83.3 Family history of diabetes mellitus; M19.90 Unspecified osteoarthritis, unspecified site; Z88.5 Allergy status to narcotic agent
CPT/HCPCS: 10022; 36415; 71045; 74176; 74177; 76700; 76942; 80048; 80053; 81001; 82962; 83036; 83880; 83986; 84484; 85007; 85025; 85027; 85610; 85730; 87045; 87205; 87493; 87899; 89051; 93005; 96374; 96375; 97163; C9113; G0378; J1100; J1815; J1885; J2405

== ENCOUNTER 2019-01-23 13:43 | Inpatient (IN) | payer BC ==
[~2019-01-23] VITALS: Ht 175.3 cm; Wt 123.7 kg
[~2019-01-23 13:43] MED LIST changes: +AML5T PO; +CICL8SOL3 EX; -DICY10CA12 PO; +HYD1TP TOP; +LORA-352 PO; +OCTR50IN IJ; -OMEP20TA PO; +PANT40TA2 PO; +POTA1TAB61 PO; +TRIA0.1O TOP
[2019-01-23 14:37] LABS: Basophils # (auto) 0 uL; Hematocrit 38.9 % (41.0-53.0); Hemoglobin 12.4 g/dL (13.5-17.5); Mean Corpuscular Hemoglobin 26.3 pg (28.0-32.0); Mean Corpuscular Hgb Conc. 31.8 g/dL (32.0-36.0); Monocytes # (auto) 0.7 uL; White Blood Cell 4.9 10^3/uL (4.4-10.8)
[2019-01-23 14:38] LABS: Basophils % (auto) 0.8 % (0.0-2.0); Eosinophils # (auto) 0.2 uL; Eosinophils % (auto) 3.7 % (0.0-7.0); Lymphocytes % (auto) 21.2 % (10.0-50.0); Mean Corpuscular Volume 82.6 fL (80.0-100.0); Monocytes % (auto) 13.5 % (0.0-12.0); Neutrophils % (auto) 60.8 % (37.0-80.0); Nucleated Red Blood Cells % 0.1 %; Platelet Count (auto) 193 10^3/uL (140-450)
[2019-01-23 14:45] LABS: Albumin 3.5 g/dL (3.4-5.0); Anion Gap 7 (5-15); Blood Urea Nitrogen 42 mg/dL (7-18); Calcium 9.6 mg/dL (8.5-10.1); Carbon Dioxide 28 mmol/L (21-32); Chloride 105 mmol/L (98-107); Glucose 180 mg/dL (74-106); Magnesium 2.4 mg/dL (1.6-2.6); Potassium 4.8 mmol/L (3.5-5.1); Sodium 140 mmol/L (136-145)
[2019-01-23 14:47] LABS: Red Cell Distribution Width 20.8 % (11.8-14.3)
[2019-01-23 14:50] LABS: Alanine Aminotransferase 61 U/L (16-61); Alkaline Phosphatase 138 U/L (45-117); Aspartate Aminotransferase 86 U/L (15-37); Bilirubin, Total 1.3 mg/dL (0.2-1.0); GFR African American 51 mL/min; GFR Non-African American 42 mL/min
[2019-01-23 14:57] LABS: Urine Bacteria NONE SEEN /hpf (None Seen); Urine Blood Negative /uL (Negative); Urine Mucus FEW (None Seen); Urine Specific Gravity 1.014 (1.001-1.035); Urine WBC 2 /hpf (0 - 3)
[2019-01-23 17:18] LABS: Albumin 3.5 g/dL (3.4-5.0); BUN/Creatinine Ratio 24.3; Calcium 9.3 mg/dL (8.5-10.1); Potassium 4.2 mmol/L (3.5-5.1)
[2019-01-23 17:21] LABS: Bilirubin, Total 1.2 mg/dL (0.2-1.0); Total Protein 9.1 g/dL (6.4-8.2)
[2019-01-23] MEDS ORDERED: HYDROcodone-ACET 10/325MG TAB PO ONE (17:45)
[2019-01-23] MEDS ORDERED: LACTULOSE 20Gm/30ML SOLN PO ONE (17:45)
[2019-01-23] MEDS ORDERED: KETOROLAC TROMETH 30 MG/ML 1ML VIAL IV ONE (17:45)
[2019-01-23] MEDS ORDERED: LORazepam 2MG/ML-1ML VIAL ONE (18:08)
[2019-01-23] MEDS ORDERED: NITROGLYCERIN 0.4 MG SL TAB SL PRN (18:45)
[2019-01-23] MEDS ORDERED: MORPHINE SULF INJ 2 MG/ML SYRINGE 1ML IV PRN (18:45)
[2019-01-23] MEDS ORDERED: DEXTROSE (50%) 50ML SYRG IV PRN (18:45)
[2019-01-23] MEDS ORDERED: ONDANSETRON HCL 4 MG/2 ML VIAL IV PRN (20:00)
[2019-01-23] MEDS: MORPHINE SULFATE 4 MG/ML SYR/VIAL IV PRN (21:54)
[2019-01-23] MEDS: LACTULOSE 20Gm/30ML SOLN PO SCH (21:55)
[2019-01-23] MEDS: GABAPENTIN 300 MG CAP PO SCH (21:55)
[2019-01-23] MEDS: ATORVASTATIN 20 MG TAB PO SCH (21:55)
[2019-01-23] MEDS: ATENOLOL 50 MG TAB PO SCH (21:57)
[2019-01-23 22:00] VITALS: BP 135/62
[2019-01-23] MEDS: InsuLIN REG 1unit/0.01ml Soln (100units/ml) SC SCH (22:13)
[2019-01-23] MEDS: ACCU-CHEK COMFORT CURVE STRIP VI SCH (22:14)
--- NOTE | 2019-01-23 23:00 | NUR ---
Patient admitted to room 214B. Alert and oriented x4. Seems slightly delayed and dazed at times. Answers appropriately. at bedside verbalized he was saying odd things at home and more confused. Sitter at bedside for safety. Receiving lactilose q4 for high ammonia levels. works downstairs. Skin clean and intact. Ambulates with stand by assist. Patient requesting to be DNR. Will put a consult in for social work job titles. Oriented to room. Bed low and call light within reach
[2019-01-24] MEDS: LACTULOSE 20Gm/30ML SOLN PO SCH ×6 (02:00→21:47)
[2019-01-24] MEDS: MORPHINE SULFATE 4 MG/ML SYR/VIAL IV PRN (03:58)
[2019-01-24 05:28] VITALS: BP 137/50
[2019-01-24] MEDS: InsuLIN REG 1unit/0.01ml Soln (100units/ml) SC SCH ×4 (06:50→21:49)
[2019-01-24] MEDS: ACCU-CHEK COMFORT CURVE STRIP VI SCH ×4 (06:50→21:36)
[2019-01-24] MEDS: GABAPENTIN 300 MG CAP PO SCH ×3 (06:50→21:47)
[2019-01-24 07:27] LABS: INR 1.27 (0.9-1.15); Partial Thromboplastin Time 29.2 sec (23.78-33.04); Prothrombin Time 13.4 sec (9.27-12.13)
[2019-01-24 07:40] LABS: Calcium 9.4 mg/dL (8.5-10.1); Potassium 3.8 mmol/L (3.5-5.1)
[2019-01-24 07:43] LABS: BUN/Creatinine Ratio 25.3
[2019-01-24 08:57] LABS: Eosinophils # (auto) 0.2 uL; Hemoglobin 11.5 g/dL (13.5-17.5); Lymphocytes # (auto) 1.4 uL; Monocytes # (auto) 0.8 uL; Neutrophils # (auto) 2.7 uL; Nucleated Red Blood Cells % 0.1 %; Platelet Count (auto) 182 10^3/uL (140-450); Red Blood Cells 4.38 10^6/uL (4.5-5.90)
[2019-01-24 08:59] VITALS: BP 129/67
[2019-01-24 08:59] LABS: Basophils # (auto) 0.1 uL; Basophils % (auto) 1.1 % (0.0-2.0); Eosinophils % (auto) 3.8 % (0.0-7.0); Lymphocytes % (auto) 26.7 % (10.0-50.0); Mean Corpuscular Hemoglobin 26.2 pg (28.0-32.0); Mean Corpuscular Hgb Conc. 31.8 g/dL (32.0-36.0); Mean Corpuscular Volume 82.3 fL (80.0-100.0); Monocytes % (auto) 15.4 % (0.0-12.0); White Blood Cell 5.2 10^3/uL (4.4-10.8)
[2019-01-24 09:02] LABS: Red Cell Distribution Width 20.8 % (11.8-14.3)
[2019-01-24] MEDS ORDERED: amLODIPine BESYLATE 5 MG TAB PO SCH (10:00)
[2019-01-24] MEDS: TORSEMIDE 20 MG TAB PO SCH (11:10)
[2019-01-24] MEDS: ATENOLOL 50 MG TAB PO SCH ×2 (11:10→21:48)
[2019-01-24] MEDS: ASPirin-EC 81 mg tab PO SCH (11:10)
[2019-01-24 13:00] VITALS: BP 121/58
--- NOTE | 2019-01-24 14:23 | NUR ---
I spoke with patient, he stated that it is okay that I give his Maryam updates on his condition. Patient also requested that Dr. Carrasco be his assigned MD as he took care of him during his hospital stay last month-I told him that I would make Dr. Carrasco aware of his request. I spoke with patient's Maryam (password [email or web address]) to give her an update on patient's plan of care.
--- NOTE | 2019-01-24 16:22 | NUR ---
assessment Per consult wants advanced directive and to be DNR. Advanced directive has been provided to patient Tammie. I informed Tammie to speak to the MD regarding DNR. Tammie verbalized understanding. Addendum: 01/24/19 at 1631 by Mehreen Galvin Amended: Links added.
[2019-01-24] MEDS ORDERED: SPIR50TA2 PO (16:36)
[2019-01-24 17:00] VITALS: BP 114/58
[2019-01-24] MEDS: TAMSULOSIN HYDROCHLORIDE 0.4 MG CAP PO SCH (17:13)
--- NOTE | 2019-01-24 19:30 | NUR ---
Opening Shift Note Assumed care of patient, awake and alert. No S/S of distress/SOB or pain. Sitter and family at bedside. Instructed on POC and to call for assist PRN, will continue to monitor for changes Q1hr and PRN.
[2019-01-24] MEDS: ATORVASTATIN 20 MG TAB PO SCH (21:47)
[2019-01-24] MEDS: RIFAXIMIN 550 MG TAB PO SCH (21:47)
[2019-01-24 21:56] VITALS: BP 106/58
[2019-01-24] MEDS: HYDROcodone-ACET 10/325MG TAB PO PRN (22:25)
[2019-01-24] MEDS ORDERED: TEMAZEPAM 15 MG CAP PO ONE (22:30)
[2019-01-25] MEDS: LACTULOSE 20Gm/30ML SOLN PO SCH ×6 (02:00→21:22)
[2019-01-25 05:00] VITALS: BP 116/58
[2019-01-25] MEDS: InsuLIN REG 1unit/0.01ml Soln (100units/ml) SC SCH ×4 (05:42→21:33)
[2019-01-25] MEDS: ACCU-CHEK COMFORT CURVE STRIP VI SCH ×4 (05:42→21:33)
[2019-01-25] MEDS: GABAPENTIN 300 MG CAP PO SCH ×3 (05:42→21:22)
--- NOTE | 2019-01-25 06:29 | NUR ---
PATIENT WELL RESTED, NO C/O PAIN, PATIENT KEPT NPO FROM 0000, AND AWARE OF PROCEDURE IN THE AM.
--- NOTE | 2019-01-25 07:30 | NUR ---
OPENING Patient awake in bed, bed in lowest position, call light within reach. No distress noted at this time. Will continue to monitor and f/u with morning assessment. Ammonia levels trending down 75 today wbc 4.1 rbc 4.35 hgb 11.7 ast 92 alt 71 bun trending down 30 crea trending down 1.46 patient asks for prn sleeping aid, will alert hospitalist per patient request patient has been npo after midnight for the liver biopsy today to be completed
[2019-01-25 07:31] LABS: Basophils # (auto) 0 uL; Eosinophils # (auto) 0.2 uL; Lymphocytes # (auto) 1.1 uL; Mean Corpuscular Volume 82.5 fL (80.0-100.0); Monocytes # (auto) 0.6 uL; Neutrophils # (auto) 2.1 uL
[2019-01-25 07:33] LABS: Basophils % (auto) 1.1 % (0.0-2.0); Eosinophils % (auto) 4.2 % (0.0-7.0); Hematocrit 35.9 % (41.0-53.0); Hemoglobin 11.7 g/dL (13.5-17.5); Lymphocytes % (auto) 28.1 % (10.0-50.0); Mean Corpuscular Hemoglobin 26.8 pg (28.0-32.0); Mean Corpuscular Hgb Conc. 32.5 g/dL (32.0-36.0); Monocytes % (auto) 14.4 % (0.0-12.0); Neutrophils % (auto) 52.2 % (37.0-80.0); Nucleated Red Blood Cells % 0.1 %; Platelet Count (auto) 150 10^3/uL (140-450); Red Blood Cells 4.35 10^6/uL (4.5-5.90); White Blood Cell 4.1 10^3/uL (4.4-10.8)
[2019-01-25 07:34] LABS: Red Cell Distribution Width 20.3 % (11.8-14.3)
[2019-01-25 07:55] LABS: Albumin 3.3 g/dL (3.4-5.0); BUN/Creatinine Ratio 20.5; Potassium 3.7 mmol/L (3.5-5.1)
[2019-01-25 07:58] LABS: Bilirubin, Total 1.6 mg/dL (0.2-1.0); Total Protein 8.4 g/dL (6.4-8.2)
[2019-01-25] MEDS ORDERED: MIDAZOLAM HCL 1MG/1ML-2 ML VIAL IV ONE (08:00)
[2019-01-25] MEDS ORDERED: fentaNYL CITRATE 100 MCG/2 ML VL IV ONE (08:00)
--- NOTE | 2019-01-25 08:15 | NUR ---
MD Diop rounding Confirms labs are improving Today's biopsy confirmation The biopsy will most likely take a few days for results Patient is to f/u with MD Diop after discharge No new orders
[2019-01-25 08:52] VITALS: BP 103/55
[2019-01-25 08:56] VITALS: BP 103/55
[2019-01-25] MEDS: ASPirin-EC 81 mg tab PO SCH (10:00)
[2019-01-25] MEDS: ATENOLOL 50 MG TAB PO SCH ×2 (10:00→22:00)
[2019-01-25] MEDS ORDERED: GELATIN 1 SPONGE SIZE 50 TOP ONE (11:12)
[2019-01-25] MEDS: RIFAXIMIN 550 MG TAB PO SCH ×2 (12:07→21:23)
[2019-01-25] MEDS: TORSEMIDE 20 MG TAB PO SCH (12:12)
[2019-01-25 12:27] VITALS: BP 125/70
[2019-01-25] MEDS: TAMSULOSIN HYDROCHLORIDE 0.4 MG CAP PO SCH (18:05)
--- NOTE | 2019-01-25 19:35 | NUR ---
Opening Shift Note Assumed care of patient, awake and alert. No S/S of distress/SOB or pain. Bed locked in lowest position, side railsx2, call light within reach. Instructed on POC and to call for assist PRN, will continue to monitor for changes Q1hr and PRN.
[2019-01-25] MEDS: HYDROcodone-ACET 10/325MG TAB PO PRN (20:35)
[2019-01-25 21:00] VITALS: BP 113/53
[2019-01-25] MEDS: ATORVASTATIN 20 MG TAB PO SCH (21:23)
[2019-01-25] MEDS: ZOLPIDEM TARTRATE 5 MG TAB PO PRN (21:23)
[2019-01-26 05:00] VITALS: BP 123/60
[2019-01-26] MEDS: GABAPENTIN 300 MG CAP PO SCH ×3 (06:16→21:06)
[2019-01-26] MEDS: LACTULOSE 20Gm/30ML SOLN PO SCH ×3 (06:16→21:07)
[2019-01-26] MEDS: ACCU-CHEK COMFORT CURVE STRIP VI SCH ×4 (06:17→22:23)
[2019-01-26] MEDS: InsuLIN REG 1unit/0.01ml Soln (100units/ml) SC SCH ×4 (06:17→22:00)
[2019-01-26 07:31] LABS: Calcium 8.5 mg/dL (8.5-10.1); Potassium 3.8 mmol/L (3.5-5.1)
[2019-01-26 09:06] VITALS: BP 115/66
[2019-01-26] MEDS: RIFAXIMIN 550 MG TAB PO SCH ×2 (10:03→22:20)
[2019-01-26] MEDS: ATENOLOL 50 MG TAB PO SCH ×2 (10:04→21:07)
[2019-01-26] MEDS: HYDROcodone-ACET 10/325MG TAB PO PRN ×2 (10:04→14:36)
[2019-01-26] MEDS: ASPirin-EC 81 mg tab PO SCH (10:04)
[2019-01-26] MEDS: TORSEMIDE 20 MG TAB PO SCH (10:05)
--- NOTE | 2019-01-26 12:35 | NUR ---
NUTRITION CONSULT/ASSESSMENT NOTES Please refer to link notes of nutrition screen form filed under the intervention section of the plan of care for further details. Est. Needs: 1850 kcal to 2450 kcal (15-20 kcal/kgBW), 58 gms to 73 gms pro (0.8-1.0 gms/kgIBW: 73 kg). Will continue to monitor pertinent labs and reassess nutrient need prn Thank you for this consult. Addendum: 01/26/19 at [address] Amended: Links added.
[2019-01-26 12:59] VITALS: BP 116/57
--- NOTE | 2019-01-26 14:12 | NUR ---
NOTIFIED DR LINN OF DIETARY NOTE FOR PT MALNUTRITION, MD AWARE, NO NEW ORDERS.
[2019-01-26] MEDS: SPIRONOLACTONE 25 MG TAB PO SCH (16:56)
[2019-01-26 16:57] VITALS: BP 120/59
[2019-01-26] MEDS: TAMSULOSIN HYDROCHLORIDE 0.4 MG CAP PO SCH (16:57)
[2019-01-26 21:00] VITALS: BP 122/61
[2019-01-26] MEDS: ATORVASTATIN 20 MG TAB PO SCH (21:06)
[2019-01-26] MEDS: ZOLPIDEM TARTRATE 5 MG TAB PO PRN (21:07)
[2019-01-27 05:00] VITALS: BP 115/65
[2019-01-27] MEDS: GABAPENTIN 300 MG CAP PO SCH (06:05)
[2019-01-27] MEDS: SPIRONOLACTONE 25 MG TAB PO SCH (06:05)
[2019-01-27] MEDS: LACTULOSE 20Gm/30ML SOLN PO SCH (06:05)
[2019-01-27] MEDS: ACCU-CHEK COMFORT CURVE STRIP VI SCH ×2 (06:09→11:30)
[2019-01-27] MEDS: InsuLIN REG 1unit/0.01ml Soln (100units/ml) SC SCH ×2 (06:19→11:30)
[2019-01-27 06:45] LABS: BUN/Creatinine Ratio 17.3; Calcium 8.6 mg/dL (8.5-10.1); Potassium 3.6 mmol/L (3.5-5.1)
[2019-01-27 09:00] VITALS: BP 106/62
[2019-01-27] MEDS: RIFAXIMIN 550 MG TAB PO SCH (10:00)
[2019-01-27] MEDS: ATENOLOL 50 MG TAB PO SCH (10:00)
[2019-01-27] MEDS: TORSEMIDE 20 MG TAB PO SCH (10:36)
[2019-01-27] MEDS: ASPirin-EC 81 mg tab PO SCH (10:36)
[2019-01-27] MEDS ORDERED: SPIR25TA8 PO (12:40)
[2019-01-27] MEDS ORDERED: LACT10SO3 PO (12:40)
[2019-01-27] MEDS ORDERED: ATEN50TA PO (12:40)
[2019-01-27] MEDS ORDERED: ZOLP10TA PO (12:40)
[2019-01-27] MEDS ORDERED: RIFA550T PO (12:40)
[2019-01-27 13:00] VITALS: BP 146/87
--- NOTE | 2019-01-27 18:36 | NUR ---
RE: CALL RECEIVED CALL FROM PATIENT'S (CONFIRMED PASSWORD). STATED THAT THEY WOULD LIKE TO KNOW THEIR LAB WORK IN REGARDING TO THE AMMONIA LEVEL. INFORMED OF THE INFORMATION.
== END 2019-01-27 13:30 | disposition home or self-care (01) | DRG 441 ==
LOC: ER 13:45 → TELE 18:46 → TELE-CENTR 20:11 → CENTRAL 01-25 12:03
PROVIDERS: ADMIT Nurse Practitioner Acute Care; ATTEND Internal Medicine
PROC: 0FB03ZX Excision of Liver, Percutaneous Approach, Diagnostic (ICD-10-PCS; principal; 2019-01-25)
DX: K72.90 Hepatic failure, unspecified without coma (principal); N17.0 Acute kidney failure with tubular necrosis; R18.8 Other ascites; D68.9 Coagulation defect, unspecified; C7A.8 Other malignant neuroendocrine tumors; N39.0 Urinary tract infection, site not specified; K74.60 Unspecified cirrhosis of liver; C26.9 Malignant neoplasm of ill-defined sites within the digestive system; E78.5 Hyperlipidemia, unspecified; N18.3 Chronic kidney disease, stage 3 (moderate); D50.9 Iron deficiency anemia, unspecified; E11.21 Type 2 diabetes mellitus with diabetic nephropathy; E11.22 Type 2 diabetes mellitus with diabetic chronic kidney disease; E66.01 Morbid (severe) obesity due to excess calories; E87.6 Hypokalemia; I12.9 Hypertensive chronic kidney disease with stage 1 through stage 4 chronic kidney disease, or unspecified chronic kidney disease; R16.1 Splenomegaly, not elsewhere classified; K21.9 Gastro-esophageal reflux disease without esophagitis; M19.90 Unspecified osteoarthritis, unspecified site; N40.0 Benign prostatic hyperplasia without lower urinary tract symptoms; Z79.82 Long term (current) use of aspirin; Z79.899 Other long term (current) drug therapy; Z80.0 Family history of malignant neoplasm of digestive organs; Z80.1 Family history of malignant neoplasm of trachea, bronchus and lung; Z82.3 Family history of stroke; Z82.49 Family history of ischemic heart disease and other diseases of the circulatory system; Z82.5 Family history of asthma and other chronic lower respiratory diseases; Z85.038 Personal history of other malignant neoplasm of large intestine; Z83.3 Family history of diabetes mellitus; Z79.84 Long term (current) use of oral hypoglycemic drugs
CPT/HCPCS: 10022; 36415; 70450; 74150; 74176; 77012; 80048; 80053; 81001; 82140; 82962; 83036; 83735; 84260; 84443; 84484; 85025; 85610; 85730; 93005; 96374; G0378; J1815; J1885; J2250; J2405

== ENCOUNTER → 2019-02-12 | Outpatient (CLI) | payer BC ==
[~2019-02-12] MED LIST changes: -ATE50T PO; +ATEN50TA PO; +LACT10SO3 PO; +RIFA550T PO; +SPIR25TA8 PO; +ZOLP10TA PO
== END | disposition home or self-care (01) ==
LOC: XY 08:54
PROVIDERS: ATTEND Internal Medicine
DX: D3A.019 Benign carcinoid tumor of the small intestine, unspecified portion (principal); D64.9 Anemia, unspecified
CPT/HCPCS: 78805; A9547

== ENCOUNTER → 2019-02-27 | Outpatient (CLI) | payer BC ==
[2019-02-27 12:22] LABS: Basophils # (auto) 0 uL; Basophils % (auto) 0.8 % (0.0-2.0); Eosinophils # (auto) 0.1 uL; Hemoglobin 11.4 g/dL (13.5-17.5); Lymphocytes # (auto) 0.7 uL; Lymphocytes % (auto) 14.6 % (10.0-50.0); Mean Corpuscular Hemoglobin 27.4 pg (28.0-32.0); Mean Corpuscular Hgb Conc. 32.6 g/dL (32.0-36.0); Mean Corpuscular Volume 83.9 fL (80.0-100.0); Monocytes # (auto) 0.5 uL; Monocytes % (auto) 10.8 % (0.0-12.0); Neutrophils # (auto) 3.4 uL; Neutrophils % (auto) 71.8 % (37.0-80.0); Nucleated Red Blood Cells % 0.1 %; Platelet Count (auto) 161 10^3/uL (140-450); Red Blood Cells 4.17 10^6/uL (4.5-5.90); White Blood Cell 4.7 10^3/uL (4.4-10.8)
[2019-02-27 12:38] LABS: Red Cell Distribution Width 20.7 % (11.8-14.3)
[2019-02-27 12:49] LABS: Albumin 3.3 g/dL (3.4-5.0); Calcium 9.1 mg/dL (8.5-10.1); Potassium 4.4 mmol/L (3.5-5.1)
[2019-02-27 12:53] LABS: BUN/Creatinine Ratio 18.1; Bilirubin, Total 1.3 mg/dL (0.2-1.0); Total Protein 8.7 g/dL (6.4-8.2)
== END | disposition home or self-care (01) ==
LOC: LAB 11:13
PROVIDERS: ATTEND Internal Medicine
DX: D3A.019 Benign carcinoid tumor of the small intestine, unspecified portion (principal)
CPT/HCPCS: 36415; 80053; 83615; 85025

== ENCOUNTER → 2019-04-23 | Outpatient (CLI) | payer BC ==
[2019-04-23 14:14] LABS: Eosinophils # (auto) 0.1 uL; Lymphocytes # (auto) 0.7 uL; Monocytes # (auto) 0.5 uL; Red Cell Distribution Width 18.1 % (11.8-14.3)
[2019-04-23 14:15] LABS: Basophils # (auto) 0 uL; Eosinophils % (auto) 3.3 % (0.0-7.0); Hematocrit 30.6 % (41.0-53.0); Hemoglobin 9.6 g/dL (13.5-17.5); Lymphocytes % (auto) 18.2 % (10.0-50.0); Mean Corpuscular Hemoglobin 25.5 pg (28.0-32.0); Mean Corpuscular Hgb Conc. 31.2 g/dL (32.0-36.0); Mean Corpuscular Volume 81.6 fL (80.0-100.0); Monocytes % (auto) 13.8 % (0.0-12.0); Neutrophils # (auto) 2.5 uL; Neutrophils % (auto) 63.7 % (37.0-80.0); Platelet Count (auto) 156 10^3/uL (140-450); Red Blood Cells 3.75 10^6/uL (4.5-5.90)
[2019-04-23 14:28] LABS: Calcium 8.5 mg/dL (8.5-10.1); Potassium 4.1 mmol/L (3.5-5.1)
[2019-04-23 14:31] LABS: BUN/Creatinine Ratio 9.8; Bilirubin, Total 0.8 mg/dL (0.2-1.0); Total Protein 7.7 g/dL (6.4-8.2)
[2019-04-23 14:44] LABS: INR 1.12 (0.9-1.15); Partial Thromboplastin Time 26.8 sec (23.64-32.05)
== END | disposition home or self-care (01) ==
LOC: LAB 13:47
PROVIDERS: ATTEND Internal Medicine Gastroenterology
DX: K74.69 Other cirrhosis of liver (principal); K72.90 Hepatic failure, unspecified without coma
CPT/HCPCS: 36415; 80053; 82105; 82140; 85025; 85610; 85730

== ENCOUNTER → 2019-06-05 | Outpatient (CLI) | payer BC ==
[~2019-06-05] MED LIST changes: -GLIP-116 PO; +GLIP10TA9 PO
[2019-06-05 14:52] LABS: Basophils # (auto) 0 uL; Basophils % (auto) 1.2 % (0.0-2.0); Eosinophils # (auto) 0.1 uL; Eosinophils % (auto) 2.6 % (0.0-7.0); Hematocrit 27.3 % (41.0-53.0); Hemoglobin 8.3 g/dL (13.5-17.5); Lymphocytes # (auto) 0.6 uL; Lymphocytes % (auto) 15.8 % (10.0-50.0); Mean Corpuscular Hemoglobin 23.3 pg (28.0-32.0); Mean Corpuscular Hgb Conc. 30.5 g/dL (32.0-36.0); Mean Corpuscular Volume 76.3 fL (80.0-100.0); Monocytes # (auto) 0.5 uL; Monocytes % (auto) 11.5 % (0.0-12.0); Neutrophils # (auto) 2.8 uL; Neutrophils % (auto) 68.9 % (37.0-80.0); Nucleated Red Blood Cells % 0.1 %; Platelet Count (auto) 139 10^3/uL (140-450); Red Blood Cells 3.57 10^6/uL (4.5-5.90); Red Cell Distribution Width 18.8 % (11.8-14.3)
[2019-06-05 16:23] LABS: Albumin 2.8 g/dL (3.4-5.0); Calcium 8.2 mg/dL (8.5-10.1); Potassium 3.7 mmol/L (3.5-5.1)
[2019-06-05 16:32] LABS: BUN/Creatinine Ratio 10.5; Bilirubin, Total 1.2 mg/dL (0.2-1.0); Total Protein 7.8 g/dL (6.4-8.2)
== END | disposition home or self-care (01) ==
LOC: LAB 14:08
PROVIDERS: ATTEND Internal Medicine
DX: D3A.019 Benign carcinoid tumor of the small intestine, unspecified portion (principal)
CPT/HCPCS: 36415; 80053; 83615; 84260; 85025

== ENCOUNTER → 2019-06-12 | Outpatient (CLI) | payer BC ==
[2019-06-12 13:38] LABS: Cholesterol 122 mg/dL (< 200)
[2019-06-12 13:40] LABS: HDL Cholesterol 44 mg/dL (40-59); LDL Cholesterol 65 mg/dL (< 100); Triglycerides 103 mg/dL (< 150)
== END | disposition home or self-care (01) ==
LOC: LAB 12:47
PROVIDERS: ATTEND Internal Medicine
DX: E11.9 Type 2 diabetes mellitus without complications (principal); E78.5 Hyperlipidemia, unspecified; D64.9 Anemia, unspecified; M19.90 Unspecified osteoarthritis, unspecified site; K74.60 Unspecified cirrhosis of liver; C7B.8 Other secondary neuroendocrine tumors; R18.8 Other ascites; M54.5 Low back pain
CPT/HCPCS: 36415; 80061; 82043; 82306; 83036

== ENCOUNTER → 2019-06-27 | Outpatient (CLI) | payer BC ==
[2019-06-27 10:27] LABS: Basophils # (auto) 0 uL; Lymphocytes # (auto) 0.7 uL; Monocytes # (auto) 0.6 uL; Platelet Count (auto) 147 10^3/uL (140-450)
[2019-06-27 10:28] LABS: Basophils % (auto) 0.8 % (0.0-2.0); Eosinophils # (auto) 0.2 uL; Eosinophils % (auto) 3.6 % (0.0-7.0); Hematocrit 27.6 % (41.0-53.0); Hemoglobin 8.4 g/dL (13.5-17.5); Lymphocytes % (auto) 15.2 % (10.0-50.0); Mean Corpuscular Hemoglobin 22.8 pg (28.0-32.0); Mean Corpuscular Hgb Conc. 30.3 g/dL (32.0-36.0); Mean Corpuscular Volume 75.1 fL (80.0-100.0); Monocytes % (auto) 12.5 % (0.0-12.0); Neutrophils # (auto) 3.1 uL; Neutrophils % (auto) 67.9 % (37.0-80.0); Nucleated Red Blood Cells % 0.1 %; Red Blood Cells 3.67 10^6/uL (4.5-5.90); White Blood Cell 4.5 10^3/uL (4.4-10.8)
[2019-06-27 10:42] LABS: INR 1.15 (0.9-1.15); Partial Thromboplastin Time 28.2 sec (23.64-32.05)
== END | disposition home or self-care (01) ==
LOC: LAB 09:56
PROVIDERS: ATTEND Internal Medicine Gastroenterology
DX: K74.69 Other cirrhosis of liver (principal)
CPT/HCPCS: 36415; 85025; 85610; 85730

== ENCOUNTER → 2019-06-28 | Outpatient (CLI) | payer BC ==
--- NOTE | 2019-06-28 09:45 | NUR ---
PT IN ULTRASOUND FOR A PARACENTESIS. CONSENTS SIGNED. DR WEST AT BEDSIDE AND PROCEDURE STARTED. VSS 131/75-63-16-96%. 1000: 130/72-64-17-96%. 1025: 127/76-68-16-95%. 1030: FINISHED WITH PROCEDURE. CATHETER REMOVED AND OCCLUSIVE DRESSING APPLIED. NO BLEEDING NOTED. PT TOLERATED WELL. 5350 ML OF STRAW COLORED FLUID REMOVED. NOT SENT TO LAB. ACI GIVEN AND DC BY JANNET.
== END | disposition home or self-care (01) ==
LOC: US 08:51
PROVIDERS: ATTEND Internal Medicine Gastroenterology
DX: K74.69 Other cirrhosis of liver (principal); R18.8 Other ascites; I10 Essential (primary) hypertension; E11.9 Type 2 diabetes mellitus without complications; M17.10 Unilateral primary osteoarthritis, unspecified knee; Z79.84 Long term (current) use of oral hypoglycemic drugs; Z79.899 Other long term (current) drug therapy
CPT/HCPCS: 49083; C1729; 10022; 76942

== ENCOUNTER → 2019-07-23 | Outpatient (CLI) | payer BC ==
[2019-07-23 12:02] LABS: Basophils # (auto) 0.1 uL; Basophils % (auto) 1.9 % (0.0-2.0); Eosinophils # (auto) 0.2 uL; Eosinophils % (auto) 3.5 % (0.0-7.0); Hematocrit 27.3 % (41.0-53.0); Hemoglobin 8.5 g/dL (13.5-17.5); Lymphocytes # (auto) 0.5 uL; Lymphocytes % (auto) 12.5 % (10.0-50.0); Mean Corpuscular Hemoglobin 22.1 pg (28.0-32.0); Mean Corpuscular Hgb Conc. 31.1 g/dL (32.0-36.0); Mean Corpuscular Volume 71.2 fL (80.0-100.0); Monocytes # (auto) 0.5 uL; Monocytes % (auto) 11.5 % (0.0-12.0); Neutrophils # (auto) 3.1 uL; Neutrophils % (auto) 70.6 % (37.0-80.0); Platelet Count (auto) 159 10^3/uL (140-450); Red Blood Cells 3.84 10^6/uL (4.5-5.90); Red Cell Distribution Width 19.1 % (11.8-14.3); White Blood Cell 4.4 10^3/uL (4.4-10.8)
[2019-07-23 12:32] LABS: Potassium 3.7 mmol/L (3.5-5.1)
[2019-07-23 12:36] LABS: Albumin 2.9 g/dL (3.4-5.0); BUN/Creatinine Ratio 8.5; Bilirubin, Total 1.5 mg/dL (0.2-1.0); Calcium 8.1 mg/dL (8.5-10.1); Total Protein 7.7 g/dL (6.4-8.2)
[2019-07-23 12:39] LABS: Ferritin 9.8 ng/mL (10-322)
[2019-07-23 14:15] LABS: Reticulocyte % (auto) 2.8 % (0.5-1.5)
[2019-07-23 14:35] LABS: % Iron Saturation 5.5 % (20-55)
== END | disposition home or self-care (01) ==
LOC: LAB 11:33
PROVIDERS: ATTEND Internal Medicine
DX: D3A.019 Benign carcinoid tumor of the small intestine, unspecified portion (principal); D64.9 Anemia, unspecified
CPT/HCPCS: 36415; 80053; 82607; 82728; 83540; 83550; 83615; 85025; 85045; 86880

== ENCOUNTER → 2019-08-29 | Outpatient (CLI) | payer BC ==
[2019-08-29 12:23] LABS: Lymphocytes # (auto) 0.6 uL; Mean Corpuscular Hemoglobin 20.9 pg (28.0-32.0)
[2019-08-29 12:25] LABS: Basophils # (auto) 0.1 uL; Basophils % (auto) 1.1 % (0.0-2.0); Eosinophils # (auto) 0.2 uL; Eosinophils % (auto) 2.5 % (0.0-7.0); Hematocrit 29.2 % (41.0-53.0); Hemoglobin 8.6 g/dL (13.5-17.5); Lymphocytes % (auto) 10.3 % (10.0-50.0); Mean Corpuscular Hgb Conc. 29.3 g/dL (32.0-36.0); Mean Corpuscular Volume 71.4 fL (80.0-100.0); Monocytes # (auto) 1.1 uL; Monocytes % (auto) 17.9 % (0.0-12.0); Neutrophils # (auto) 4.3 uL; Neutrophils % (auto) 68.2 % (37.0-80.0); Platelet Count (auto) 204 10^3/uL (140-450); Red Blood Cells 4.09 10^6/uL (4.5-5.90); Red Cell Distribution Width 19.7 % (11.8-14.3); White Blood Cell 6.3 10^3/uL (4.4-10.8)
[2019-08-29 12:35] LABS: Albumin 3.3 g/dL (3.4-5.0); BUN/Creatinine Ratio 11.5; Calcium 8.3 mg/dL (8.5-10.1); Potassium 4.2 mmol/L (3.5-5.1)
[2019-08-29 12:38] LABS: Bilirubin, Total 1.7 mg/dL (0.2-1.0); Total Protein 8.4 g/dL (6.4-8.2)
== END | disposition home or self-care (01) ==
LOC: LAB 11:31
PROVIDERS: ATTEND Internal Medicine
DX: D64.9 Anemia, unspecified (principal); E11.9 Type 2 diabetes mellitus without complications; I10 Essential (primary) hypertension; K21.9 Gastro-esophageal reflux disease without esophagitis; C7A.00 Malignant carcinoid tumor of unspecified site; Z90.49 Acquired absence of other specified parts of digestive tract
CPT/HCPCS: 36415; 80053; 83036; 83880; 85025

== ENCOUNTER → 2019-09-03 | Outpatient (CLI) | payer BC ==
[2019-09-03 11:53] LABS: Basophils # (auto) 0 uL; Eosinophils # (auto) 0.1 uL; Lymphocytes # (auto) 0.7 uL; Mean Corpuscular Hemoglobin 21.2 pg (28.0-32.0); Monocytes # (auto) 0.5 uL; Monocytes % (auto) 15.2 % (0.0-12.0)
[2019-09-03 11:56] LABS: Basophils % (auto) 0.6 % (0.0-2.0); Eosinophils % (auto) 4.6 % (0.0-7.0); Hematocrit 27.9 % (41.0-53.0); Hemoglobin 8.2 g/dL (13.5-17.5); Mean Corpuscular Hgb Conc. 29.4 g/dL (32.0-36.0); Neutrophils # (auto) 1.7 uL; Neutrophils % (auto) 56.6 % (37.0-80.0); Platelet Count (auto) 143 10^3/uL (140-450); Red Blood Cells 3.87 10^6/uL (4.5-5.90); Red Cell Distribution Width 19.7 % (11.8-14.3); White Blood Cell 3.1 10^3/uL (4.4-10.8)
[2019-09-03 12:08] LABS: INR 1.15 (0.9-1.15); Partial Thromboplastin Time 28.8 sec (23.64-32.05)
== END | disposition home or self-care (01) ==
LOC: LAB 11:39
PROVIDERS: ATTEND Internal Medicine Gastroenterology
DX: Z01.812 Encounter for preprocedural laboratory examination (principal); I10 Essential (primary) hypertension; E78.5 Hyperlipidemia, unspecified; K74.60 Unspecified cirrhosis of liver; Z86.03 Personal history of neoplasm of uncertain behavior
CPT/HCPCS: 36415; 85025; 85610; 85730

== ENCOUNTER → 2019-09-04 | Outpatient (CLI) | payer BC ==
--- NOTE | 2019-09-04 10:45 | NUR ---
PT IN ULTRASOUND FOR A PARACENTESIS BY DR MISHRA. VSS 153/84-87-16-95%. 1100: 160/81-82-17-95%. 1115: 140/75-81-18-95%. FINISHED WITH PARACENTESIS. PT TOLERATED WELL. 5650 ML OF ASCITES FLUID REMOVED. PT DC HOME VIA W/C IN GOOD CONDITION.
== END | disposition home or self-care (01) ==
LOC: US 09:51
PROVIDERS: ATTEND Internal Medicine Gastroenterology
DX: R18.8 Other ascites (principal); K74.60 Unspecified cirrhosis of liver; K72.90 Hepatic failure, unspecified without coma
CPT/HCPCS: 49083; C1729; 10022; 76942

== ENCOUNTER → 2019-09-06 | Outpatient (CLI) | payer BC | END | disposition home or self-care (01) | LOC: XYW 12:16 | PROVIDERS: ATTEND Internal Medicine | DX: R18.8 Other ascites (principal) | CPT/HCPCS: 49083; 76942 ==

== ENCOUNTER → 2019-09-10 | Outpatient (CLI) | payer BC ==
[2019-09-10 12:09] LABS: Eosinophils # (auto) 0.1 uL; Hemoglobin 8.3 g/dL (13.5-17.5); Lymphocytes # (auto) 0.6 uL; Mean Corpuscular Hemoglobin 21.1 pg (28.0-32.0); Mean Corpuscular Hgb Conc. 29.5 g/dL (32.0-36.0); Monocytes # (auto) 0.6 uL; White Blood Cell 4.5 10^3/uL (4.4-10.8)
[2019-09-10 12:11] LABS: Basophils # (auto) 0 uL; Basophils % (auto) 0.7 % (0.0-2.0); Eosinophils % (auto) 2.4 % (0.0-7.0); Hematocrit 28.1 % (41.0-53.0); Lymphocytes % (auto) 13.4 % (10.0-50.0); Mean Corpuscular Volume 71.7 fL (80.0-100.0); Monocytes % (auto) 13.2 % (0.0-12.0); Neutrophils # (auto) 3.2 uL; Neutrophils % (auto) 70.3 % (37.0-80.0); Platelet Count (auto) 186 10^3/uL (140-450); Red Blood Cells 3.93 10^6/uL (4.5-5.90)
[2019-09-10 12:28] LABS: Red Cell Distribution Width 20.1 % (11.8-14.3)
== END | disposition home or self-care (01) ==
LOC: LAB 11:53
PROVIDERS: ATTEND Internal Medicine
DX: E11.9 Type 2 diabetes mellitus without complications (principal); K74.69 Other cirrhosis of liver; R18.8 Other ascites; I10 Essential (primary) hypertension; E78.5 Hyperlipidemia, unspecified; Z98.890 Other specified postprocedural states
CPT/HCPCS: 36415; 85025

== ENCOUNTER 2020-10-05 21:54 | Emergency (ER) | payer BC, OTHER ==
[~2020-10-05] VITALS: Ht 182.9 cm; Wt 99.8 kg
[2020-10-05] MEDS ORDERED: fentaNYL CITRATE 100 MCG/2 ML VL IM ONE (23:30)
[2020-10-05] MEDS ORDERED: ONDANSETRON HCL 4 MG/2 ML VIAL IV ONE (23:30)
[2020-10-05 23:31] LABS: Basophils # (auto) 0 10 ^3/uL (0-0.2); Basophils % (auto) 0.4 % (0.0-2.0); Eosinophils # (auto) 0.1 10 ^3/uL (0-0.8); Eosinophils % (auto) 1.7 % (0.0-7.0); Hematocrit 32.7 % (41.0-53.0); Hemoglobin 11.2 g/dL (13.5-17.5); Lymphocytes # (auto) 0.7 10 ^3/uL (0.4-5.4); Mean Corpuscular Hemoglobin 30.4 pg (28.0-32.0); Mean Corpuscular Hgb Conc. 34.3 g/dL (32.0-36.0); Mean Corpuscular Volume 88.5 fL (80.0-100.0); Monocytes # (auto) 0.9 10 ^3/uL (0-1.3); Monocytes % (auto) 13.2 % (0.0-12.0); Neutrophils # (auto) 4.8 10 ^3/uL (1.6-8.6); Neutrophils % (auto) 73.7 % (37.0-80.0); Nucleated Red Blood Cells % 0.1 %; Platelet Count (auto) 169 10^3/uL (140-450); Red Blood Cells 3.69 10^6/uL (4.5-5.90); Red Cell Distribution Width 15.9 % (11.8-14.3); White Blood Cell 6.5 10^3/uL (4.4-10.8)
[2020-10-05 23:41] LABS: Albumin 2.2 g/dL (3.4-5.0); Anion Gap 10 (5-15); Blood Urea Nitrogen 13 mg/dL (7-18); Calcium 7.9 mg/dL (8.5-10.1); Carbon Dioxide 21 mmol/L (21-32); Chloride 104 mmol/L (98-107); Glucose 162 mg/dL (74-106); Magnesium 2.1 mg/dL (1.6-2.6); Sodium 135 mmol/L (136-145)
[2020-10-05 23:46] LABS: Potassium 2.8 mmol/L (3.5-5.1)
[2020-10-05 23:49] LABS: Alanine Aminotransferase 12 U/L (16-61); Alkaline Phosphatase 101 U/L (45-117); Aspartate Aminotransferase 27 U/L (15-37); BUN/Creatinine Ratio 11.1; Bilirubin, Total 0.9 mg/dL (0.2-1.0); GFR African American 80 mL/min; GFR Non-African American 66 mL/min; Total Protein 6.6 g/dL (6.4-8.2)
[2020-10-06] MEDS ORDERED: IBUPROFEN 800 MG TAB PO ONE (01:15)
[2020-10-06] MEDS ORDERED: POTASSIUM EFFERVESENT TAB 25 MEQ GT ONE (01:15)
[2020-10-06] MEDS ORDERED: TETANUS-DIPTH-ACEL PERTUSSIS 0.5ML SYR Tdap IM ONE (02:45)
[2020-10-06] MEDS ORDERED: IOHEXOL 350 MG/ML 100ML IJ ONE (03:22)
[2020-10-06 05:54] VITALS: BP 95/66
== END 2020-10-06 06:00 | disposition home or self-care (01) ==
LOC: EDBD 21:54 → ER 21:55
DX: S01.81XA Laceration without foreign body of other part of head, initial encounter (principal); J90 Pleural effusion, not elsewhere classified; I12.9 Hypertensive chronic kidney disease with stage 1 through stage 4 chronic kidney disease, or unspecified chronic kidney disease; E11.22 Type 2 diabetes mellitus with diabetic chronic kidney disease; I50.9 Heart failure, unspecified; K21.9 Gastro-esophageal reflux disease without esophagitis; E78.5 Hyperlipidemia, unspecified; Z90.49 Acquired absence of other specified parts of digestive tract; X58.XXXA Exposure to other specified factors, initial encounter; Y93.89 Activity, other specified; Y92.89 Other specified places as the place of occurrence of the external cause; Y99.8 Other external cause status
CPT/HCPCS: 12013; 36415; 70450; 71045; 71275; 72125; 73030; 73070; 73100; 73130; 80053; 83735; 83880; 84484; 85025; 90471; 90715; 93005; 99284; Q9967

== ENCOUNTER 2020-10-24 19:12 | Inpatient (IN) | payer OTHER ==
[~2020-10-24] VITALS: Ht 172.7 cm; Wt 100.7 kg
[2020-10-24 23:21] LABS: Basophils # (auto) 0 10 ^3/uL (0-0.2); Eosinophils # (auto) 0 10 ^3/uL (0-0.8); Hematocrit 40.1 % (41.0-53.0); Hemoglobin 13.3 g/dL (13.5-17.5); Lymphocytes # (auto) 0.5 10 ^3/uL (0.4-5.4); Lymphocytes % (auto) 3.4 % (10.0-50.0); Mean Corpuscular Hemoglobin 30.3 pg (28.0-32.0); Mean Corpuscular Hgb Conc. 33.2 g/dL (32.0-36.0); Mean Corpuscular Volume 91.4 fL (80.0-100.0); Monocytes # (auto) 1.2 10 ^3/uL (0-1.3); Monocytes % (auto) 8.1 % (0.0-12.0); Neutrophils # (auto) 13.4 10 ^3/uL (1.6-8.6); Neutrophils % (auto) 88.5 % (37.0-80.0); Platelet Count (auto) 226 10^3/uL (140-450); Red Blood Cells 4.39 10^6/uL (4.5-5.90); White Blood Cell 15.1 10^3/uL (4.4-10.8)
[2020-10-24 23:39] LABS: Albumin 2.4 g/dL (3.4-5.0); Calcium 8.9 mg/dL (8.5-10.1); Potassium 4.2 mmol/L (3.5-5.1)
[2020-10-24 23:41] LABS: BUN/Creatinine Ratio 13.3
[2020-10-24 23:54] LABS: Bilirubin, Total 1.9 mg/dL (0.2-1.0); Total Protein 7.4 g/dL (6.4-8.2)
[2020-10-25] MEDS ORDERED: MORPHINE SULF INJ 2 MG/ML SYRINGE 1ML IV PRN (05:45)
[2020-10-25] MEDS ORDERED: NITROGLYCERIN 0.4 MG SL TAB SL PRN (05:45)
[2020-10-25] MEDS ORDERED: DEXTROSE (50%) 50ML SYRG IV PRN (06:00)
[2020-10-25] MEDS ORDERED: FUROSEMIDE 40 MG/4 ML VIAL IV ONE (06:00)
[2020-10-25] MEDS ORDERED: ALBUTEROL SULF 2.5 MG/0.5ML(0.5%) NEB SOLN NEB PRN (06:30)
[2020-10-25 09:22] LABS: Basophils # (auto) 0 10 ^3/uL (0-0.2); Basophils % (auto) 0.1 % (0.0-2.0); Eosinophils # (auto) 0 10 ^3/uL (0-0.8); Hematocrit 38.4 % (41.0-53.0); Hemoglobin 12.9 g/dL (13.5-17.5); Lymphocytes # (auto) 0.4 10 ^3/uL (0.4-5.4); Mean Corpuscular Hemoglobin 30.4 pg (28.0-32.0); Mean Corpuscular Hgb Conc. 33.5 g/dL (32.0-36.0); Mean Corpuscular Volume 90.7 fL (80.0-100.0); Monocytes # (auto) 1.2 10 ^3/uL (0-1.3); Monocytes % (auto) 8.4 % (0.0-12.0); Neutrophils # (auto) 12.1 10 ^3/uL (1.6-8.6); Neutrophils % (auto) 88.5 % (37.0-80.0); Platelet Count (auto) 209 10^3/uL (140-450); Red Blood Cells 4.24 10^6/uL (4.5-5.90); Red Cell Distribution Width 16.7 % (11.8-14.3); White Blood Cell 13.7 10^3/uL (4.4-10.8)
[2020-10-25 09:57] LABS: INR 1.44 (0.9-1.15)
[2020-10-25 10:12] LABS: Albumin 2.4 g/dL (3.4-5.0); Potassium 4.4 mmol/L (3.5-5.1)
[2020-10-25 10:15] LABS: BUN/Creatinine Ratio 13.3; Total Protein 7.6 g/dL (6.4-8.2)
[2020-10-25] MEDS: InsuLIN REG 1unit/0.01ml Soln (100units/ml) SC SCH ×4 (11:30→21:46)
[2020-10-25] MEDS: ACCU-CHEK COMFORT CURVE STRIP VI SCH ×4 (15:19→21:16)
[2020-10-25] MEDS: ALBUMIN 25% 100 ML IV SCH ×6 (16:31→23:27)
[2020-10-25] MEDS: SPIRONOLACTONE 25 MG TAB PO SCH ×2 (16:32→21:17)
[2020-10-25] MEDS: GABAPENTIN 300 MG CAP PO SCH ×3 (16:32→21:17)
[2020-10-25] MEDS: TORSEMIDE 20 MG TAB PO SCH (16:32)
[2020-10-25] MEDS: rifAXIMin 550 MG TAB PO SCH ×2 (16:33→21:18)
[2020-10-25] MEDS: ATENOLOL 50 MG TAB PO SCH ×2 (16:33→21:45)
[2020-10-25] MEDS: TAMSULOSIN HYDROCHLORIDE 0.4 MG CAP PO SCH (16:33)
[2020-10-25] MEDS: POTASSIUM CHL 10 Meq TABLET PO SCH (16:33)
[2020-10-25] MEDS: amLODIPine BESYLATE 5 MG TAB PO SCH (16:34)
[2020-10-25 16:38] LABS: Urine Amorphous Crystal FEW /hpf (None Seen); Urine Bacteria FEW /hpf (None Seen); Urine Blood 1+ /uL (Negative); Urine Specific Gravity 1.027 (1.001-1.035); Urine WBC 15 /hpf (0 - 3)
[2020-10-25] MEDS: ONDANSETRON HCL 4 MG/2 ML VIAL IV PRN (16:42)
[2020-10-25] MEDS: HYDROmorphone HCL 2 MG/ML VL IV PRN ×2 (16:42→20:55)
[2020-10-25] MEDS ORDERED: ALBUMIN 25% 100 ML IV SCH (18:45)
[2020-10-25] MEDS: ZOLPIDEM TARTRATE 5 MG TAB PO SCH (21:45)
[2020-10-26] MEDS: ACCU-CHEK COMFORT CURVE STRIP VI SCH ×4 (06:25→22:26)
[2020-10-26] MEDS: GABAPENTIN 300 MG CAP PO SCH ×3 (06:25→22:26)
[2020-10-26] MEDS: InsuLIN REG 1unit/0.01ml Soln (100units/ml) SC SCH ×4 (06:25→22:00)
[2020-10-26] MEDS ORDERED: phytonadione 10 MG in SODIUM CHL 0.9% 50 ML IV ONE (09:45)
[2020-10-26] MEDS: amLODIPine BESYLATE 5 MG TAB PO SCH (10:20)
[2020-10-26] MEDS: SPIRONOLACTONE 25 MG TAB PO SCH (10:20)
[2020-10-26] MEDS: TAMSULOSIN HYDROCHLORIDE 0.4 MG CAP PO SCH (10:20)
[2020-10-26] MEDS: POTASSIUM CHL 10 Meq TABLET PO SCH (10:20)
[2020-10-26] MEDS: rifAXIMin 550 MG TAB PO SCH ×2 (12:00→22:26)
[2020-10-26] MEDS: TORSEMIDE 20 MG TAB PO SCH (12:20)
[2020-10-26 12:41] LABS: Basophils # (auto) 0 10 ^3/uL (0-0.2); Eosinophils # (auto) 0 10 ^3/uL (0-0.8); Eosinophils % (auto) 0.1 % (0.0-7.0); Hematocrit 29.7 % (41.0-53.0); Hemoglobin 10.1 g/dL (13.5-17.5); Lymphocytes # (auto) 0.2 10 ^3/uL (0.4-5.4); Lymphocytes % (auto) 2.9 % (10.0-50.0); Mean Corpuscular Hemoglobin 31.3 pg (28.0-32.0); Mean Corpuscular Hgb Conc. 34.2 g/dL (32.0-36.0); Mean Corpuscular Volume 91.6 fL (80.0-100.0); Monocytes # (auto) 0.7 10 ^3/uL (0-1.3); Monocytes % (auto) 9.5 % (0.0-12.0); Neutrophils # (auto) 6.8 10 ^3/uL (1.6-8.6); Neutrophils % (auto) 87.5 % (37.0-80.0); Nucleated Red Blood Cells % 0.1 %; Platelet Count (auto) 112 10^3/uL (140-450); Red Blood Cells 3.24 10^6/uL (4.5-5.90); Red Cell Distribution Width 16.6 % (11.8-14.3); White Blood Cell 7.7 10^3/uL (4.4-10.8)
[2020-10-26 13:02] LABS: Albumin 2.7 g/dL (3.4-5.0); Calcium 8.4 mg/dL (8.5-10.1); Potassium 4.6 mmol/L (3.5-5.1)
[2020-10-26 13:05] LABS: BUN/Creatinine Ratio 17.8; Bilirubin, Total 1.9 mg/dL (0.2-1.0); Total Protein 6.6 g/dL (6.4-8.2)
[2020-10-26] MEDS: SODIUM CHLORIDE 0.9% 1,000 ML IV SCH (16:39)
[2020-10-26] MEDS: DOPamine 1600MCG/ML D5W 250 ML IV SCH (21:12)
[2020-10-26] MEDS: ALBUMIN 25% 50 ML IV SCH (22:10)
[2020-10-26] MEDS: ZOLPIDEM TARTRATE 5 MG TAB PO SCH (22:26)
[2020-10-26] MEDS: OCTREOTIDE ACETATE 100 MCG/ML VL SUBCUT SCH (22:27)
[2020-10-27 00:11] LABS: Creatinine, Urine 171 mg/dL (30.0-125.0); Sodium Urine 9 mmol/L (40-220)
[2020-10-27] MEDS: ALBUMIN 25% 50 ML IV SCH ×2 (03:09→14:00)
[2020-10-27] MEDS: SODIUM CHLORIDE 0.9% 1,000 ML IV SCH ×2 (05:35→18:44)
[2020-10-27] MEDS: OCTREOTIDE ACETATE 100 MCG/ML VL SUBCUT SCH ×3 (06:00→22:24)
[2020-10-27] MEDS: GABAPENTIN 300 MG CAP PO SCH ×3 (06:00→22:23)
[2020-10-27] MEDS: MIDODRINE HCL 10 MG TAB PO SCH ×3 (06:00→17:49)
[2020-10-27] MEDS: InsuLIN REG 1unit/0.01ml Soln (100units/ml) SC SCH ×4 (07:00→23:05)
[2020-10-27] MEDS: ACCU-CHEK COMFORT CURVE STRIP VI SCH ×4 (07:00→22:24)
[2020-10-27 08:16] LABS: BUN/Creatinine Ratio 19.9; Calcium 8.6 mg/dL (8.5-10.1)
[2020-10-27 08:46] LABS: INR 1.27 (0.9-1.15); Partial Thromboplastin Time 38.3 sec (23.0-31.2)
[2020-10-27] MEDS: TAMSULOSIN HYDROCHLORIDE 0.4 MG CAP PO SCH (10:00)
[2020-10-27] MEDS: ALBUMIN 25% 100 ML IV SCH ×2 (11:00→17:00)
[2020-10-27] MEDS: POTASSIUM CHL 10 Meq TABLET PO SCH (11:00)
[2020-10-27] MEDS: rifAXIMin 550 MG TAB PO SCH ×2 (11:00→22:23)
[2020-10-27] MEDS: DOPamine 1600MCG/ML D5W 250 ML IV SCH (20:30)
[2020-10-27] MEDS: ZOLPIDEM TARTRATE 5 MG TAB PO SCH (22:23)
[2020-10-28] VITALS (10 sets, daily range): BP systolic 97–124; BP diastolic 62–82
[2020-10-28] MEDS: ALBUMIN 25% 100 ML IV SCH (02:25)
[2020-10-28] MEDS: HYDROmorphone HCL 2 MG/ML VL IV PRN ×2 (02:30→20:59)
[2020-10-28 05:53] LABS: Basophils # (auto) 0 10 ^3/uL (0-0.2); Eosinophils # (auto) 0 10 ^3/uL (0-0.8); Eosinophils % (auto) 0.6 % (0.0-7.0); Hematocrit 28.4 % (41.0-53.0); Hemoglobin 9.6 g/dL (13.5-17.5); Lymphocytes # (auto) 0.2 10 ^3/uL (0.4-5.4); Lymphocytes % (auto) 3.1 % (10.0-50.0); Mean Corpuscular Hemoglobin 30.9 pg (28.0-32.0); Mean Corpuscular Hgb Conc. 33.7 g/dL (32.0-36.0); Mean Corpuscular Volume 91.6 fL (80.0-100.0); Monocytes % (auto) 13.8 % (0.0-12.0); Neutrophils # (auto) 5.9 10 ^3/uL (1.6-8.6); Neutrophils % (auto) 82.5 % (37.0-80.0); Platelet Count (auto) 102 10^3/uL (140-450); Red Cell Distribution Width 16.3 % (11.8-14.3); White Blood Cell 7.2 10^3/uL (4.4-10.8)
[2020-10-28 06:13] LABS: Calcium 8.4 mg/dL (8.5-10.1); Potassium 4.8 mmol/L (3.5-5.1)
[2020-10-28 06:16] LABS: BUN/Creatinine Ratio 20.1
[2020-10-28] MEDS: MIDODRINE HCL 10 MG TAB PO SCH ×3 (06:53→17:32)
[2020-10-28] MEDS: ACCU-CHEK COMFORT CURVE STRIP VI SCH ×4 (06:53→21:52)
[2020-10-28] MEDS: OCTREOTIDE ACETATE 100 MCG/ML VL SUBCUT SCH ×3 (06:53→21:52)
[2020-10-28] MEDS: GABAPENTIN 300 MG CAP PO SCH ×3 (06:53→21:52)
[2020-10-28] MEDS: InsuLIN REG 1unit/0.01ml Soln (100units/ml) SC SCH ×4 (07:16→21:58)
[2020-10-28] MEDS: rifAXIMin 550 MG TAB PO SCH ×2 (10:00→21:52)
[2020-10-28] MEDS: SODIUM CHLORIDE 0.9% 1,000 ML IV SCH ×2 (11:00→21:04)
[2020-10-28] MEDS: TAMSULOSIN HYDROCHLORIDE 0.4 MG CAP PO SCH (11:00)
[2020-10-28] MEDS: POTASSIUM CHL 10 Meq TABLET PO SCH (11:00)
[2020-10-28] MEDS: LACTULOSE 20Gm/30ML SOLN PO SCH ×2 (12:00→17:32)
[2020-10-28] MEDS: NOREPINEPHRINE 8 MG/250ML KIT 250 ML IV SCH (12:45)
[2020-10-28 14:49] LABS: INR 1.33 (0.9-1.15)
[2020-10-28] MEDS: ZOLPIDEM TARTRATE 5 MG TAB PO SCH (21:52)
[2020-10-29] MEDS: HYDROmorphone HCL 2 MG/ML VL IV PRN ×2 (04:17→13:18)
[2020-10-29] MEDS: OCTREOTIDE ACETATE 100 MCG/ML VL SUBCUT SCH ×3 (06:27→22:00)
[2020-10-29] MEDS: MIDODRINE HCL 10 MG TAB PO SCH ×3 (06:27→18:00)
[2020-10-29] MEDS: GABAPENTIN 300 MG CAP PO SCH ×3 (06:27→22:00)
[2020-10-29] MEDS: LACTULOSE 20Gm/30ML SOLN PO SCH ×4 (06:27→18:00)
[2020-10-29 06:29] LABS: Calcium 8.4 mg/dL (8.5-10.1)
[2020-10-29 06:31] LABS: BUN/Creatinine Ratio 22.5
[2020-10-29] MEDS: ACCU-CHEK COMFORT CURVE STRIP VI SCH ×3 (09:09→22:00)
[2020-10-29] MEDS: InsuLIN REG 1unit/0.01ml Soln (100units/ml) SC SCH ×3 (09:09→22:00)
[2020-10-29] MEDS: ONDANSETRON HCL 4 MG/2 ML VIAL IV PRN (10:53)
[2020-10-29] MEDS: TAMSULOSIN HYDROCHLORIDE 0.4 MG CAP PO SCH (10:53)
[2020-10-29] MEDS: rifAXIMin 550 MG TAB PO SCH ×2 (10:53→22:00)
[2020-10-29] MEDS: POTASSIUM CHL 10 Meq TABLET PO SCH (10:53)
[2020-10-29] MEDS: NOREPINEPHRINE 8 MG/250ML KIT 250 ML IV SCH (13:23)
[2020-10-29] MEDS: SODIUM CHLORIDE 0.9% 1,000 ML IV SCH (13:57)
[2020-10-29] MEDS ORDERED: AMIODARONE HCL 150 MG in D5W 5% 100 ML IV ONE (17:00)
[2020-10-29] MEDS ORDERED: AMIODARONE 450mg/250ml AE 250 ML IV SCH (17:15)
[2020-10-29] MEDS ORDERED: SUCCINYLCHOLINE CHLORIDE 20 MG/ML 10ML VIAL IV ONE ×2 (17:39→19:45)
[2020-10-29] MEDS ORDERED: ETOMIDATE (2MG/ML) 20ML VIAL IV ONE ×2 (17:40→19:45)
[2020-10-29 18:10] VITALS: BP 104/62
[2020-10-29] MEDS ORDERED: MIDAZOLAM DRIP 50 mg/50mL 50 ML IV ONE (18:11)
[2020-10-29] MEDS: CEFEPIME 1 GM in SODIUM CHL 0.9% 50 ML IV SCH (20:00)
[2020-10-29] MEDS: MIDAZOLAM DRIP 50 mg/50mL 50 ML IV SCH (20:00)
[2020-10-29 21:04] LABS: Hematocrit 40.3 % (41.0-53.0); Hemoglobin 13.4 g/dL (13.5-17.5); Mean Corpuscular Hemoglobin 30.2 pg (28.0-32.0); Mean Corpuscular Hgb Conc. 33.3 g/dL (32.0-36.0); Mean Corpuscular Volume 90.9 fL (80.0-100.0); Platelet Count (auto) 233 10^3/uL (140-450); Red Blood Cells 4.44 10^6/uL (4.5-5.90); White Blood Cell 9.5 10^3/uL (4.4-10.8)
[2020-10-29 21:08] LABS: Basophils % (manual) 0 (0.0-2.0); Blast Cells 0; Eosinophils % (manual) 0 (0-7); Metamyelocytes % 0; Myelocytes % 0; Promyelocytes % 0; Reactive Lymphocytes 0
[2020-10-29 21:49] VITALS: BP 115/64
[2020-10-29] MEDS: metroNIDAZOLE 500MG/100ML 100 ML IV SCH (22:00)
[2020-10-29] MEDS: ZOLPIDEM TARTRATE 5 MG TAB PO SCH (22:00)
[2020-10-29 22:28] LABS: Band Neutrophils % (manual) 15; Lymphocytes % (manual) 5 (10.0-50.0); Monocytes % (manual) 6 (0-12)
[2020-10-29] MEDS: PANTOPRAZOLE 40mg/50ML NS AE 50 ML IV SCH (23:15)
[2020-10-29] MEDS: AMIODARONE 450mg/250ml AE 250 ML IV SCH (23:15)
[2020-10-30] MEDS: MIDAZOLAM DRIP 50 mg/50mL 50 ML IV SCH
[2020-10-30] MEDS: SODIUM CHLORIDE 0.9% 1,000 ML IV SCH ×2 (00:15→14:00)
[2020-10-30 01:35] VITALS: BP 112/61
[2020-10-30] MEDS: CEFEPIME 1 GM in SODIUM CHL 0.9% 50 ML IV SCH ×2 (03:39→14:00)
[2020-10-30] MEDS: PANTOPRAZOLE 40mg/50ML NS AE 50 ML IV SCH ×4 (03:39→19:02)
[2020-10-30] MEDS: MIDODRINE HCL 10 MG TAB PO SCH ×3 (06:00→18:21)
[2020-10-30] MEDS: GABAPENTIN 300 MG CAP PO SCH ×3 (06:00→20:23)
[2020-10-30] MEDS: metroNIDAZOLE 500MG/100ML 100 ML IV SCH ×3 (06:00→22:00)
[2020-10-30] MEDS: OCTREOTIDE ACETATE 100 MCG/ML VL SUBCUT SCH ×3 (06:00→22:00)
[2020-10-30] MEDS: LACTULOSE 20Gm/30ML SOLN PO SCH ×5 (06:00→23:56)
[2020-10-30 06:17] LABS: Hematocrit 40.3 % (41.0-53.0); Hemoglobin 13.9 g/dL (13.5-17.5); Mean Corpuscular Hemoglobin 31.1 pg (28.0-32.0); Mean Corpuscular Hgb Conc. 34.6 g/dL (32.0-36.0); Mean Corpuscular Volume 89.9 fL (80.0-100.0); Platelet Count (auto) 228 10^3/uL (140-450); Red Blood Cells 4.48 10^6/uL (4.5-5.90); Red Cell Distribution Width 16.3 % (11.8-14.3); White Blood Cell 11.6 10^3/uL (4.4-10.8)
[2020-10-30 06:20] VITALS: BP 112/61
[2020-10-30 07:04] LABS: Albumin 2.6 g/dL (3.4-5.0); BUN/Creatinine Ratio 24.3; Bilirubin, Total 4.6 mg/dL (0.2-1.0); Calcium 8.7 mg/dL (8.5-10.1); Magnesium 2.7 mg/dL (1.6-2.6); Total Protein 6.3 g/dL (6.4-8.2)
[2020-10-30 07:08] LABS: Potassium 5.7 mmol/L (3.5-5.1)
[2020-10-30 07:37] LABS: Basophils % (manual) 0 (0.0-2.0); Blast Cells 0; Eosinophils % (manual) 0 (0-7); Myelocytes % 0; Promyelocytes % 0; Reactive Lymphocytes 0
[2020-10-30] MEDS: VASOPRESSIN 50 UNITS in D5W 5% 247.5 ML IV SCH ×2 (08:10→20:00)
[2020-10-30] MEDS: InsuLIN REG 1unit/0.01ml Soln (100units/ml) SC SCH ×4 (08:11→22:00)
[2020-10-30] MEDS ORDERED: InsuLIN REG 1unit/0.01ml Soln (100units/ml) IV ONE (08:15)
[2020-10-30] MEDS ORDERED: DEXTROSE (50%) 50ML SYRG IV ONE ×2 (08:15→12:37)
[2020-10-30] MEDS: ACCU-CHEK COMFORT CURVE STRIP VI SCH ×4 (08:45→22:00)
[2020-10-30 08:53] LABS: Band Neutrophils % (manual) 32; Lymphocytes % (manual) 6 (10.0-50.0); Metamyelocytes % 2; Monocytes % (manual) 13 (0-12)
[2020-10-30] MEDS ORDERED: FUROSEMIDE 100 MG/10ML VIAL IV ONE (09:00)
[2020-10-30 09:28] LABS: Hematocrit 40.5 % (41.0-53.0); Hemoglobin 13.4 g/dL (13.5-17.5); Mean Corpuscular Hemoglobin 30.2 pg (28.0-32.0); Mean Corpuscular Hgb Conc. 33.1 g/dL (32.0-36.0); Mean Corpuscular Volume 91.2 fL (80.0-100.0); Platelet Count (auto) 207 10^3/uL (140-450); Red Blood Cells 4.44 10^6/uL (4.5-5.90); Red Cell Distribution Width 16.1 % (11.8-14.3); White Blood Cell 10.6 10^3/uL (4.4-10.8)
[2020-10-30] MEDS ORDERED: SODIUM ZIRCONIUM CYCL 10 GM PAK PO ONE (09:30)
[2020-10-30 09:31] LABS: Basophils % (manual) 0 (0.0-2.0); Blast Cells 0; Myelocytes % 0; Promyelocytes % 0; Reactive Lymphocytes 0
[2020-10-30] MEDS: TAMSULOSIN HYDROCHLORIDE 0.4 MG CAP PO SCH (10:00)
[2020-10-30] MEDS: POTASSIUM CHL 10 Meq TABLET PO SCH (10:00)
[2020-10-30] MEDS: rifAXIMin 550 MG TAB PO SCH ×2 (10:25→22:00)
[2020-10-30] MEDS: NOREPINEPHRINE 8 MG/250ML KIT 250 ML IV SCH (11:13)
[2020-10-30] MEDS ORDERED: EPINEPHrine HCL 1 MG/10 ML SYRG IV ONE (12:37)
[2020-10-30] MEDS ORDERED: SODIUM BICARBONATE 8.4% INJ 50ML SYRINGE IV ONE (12:37)
[2020-10-30 13:10] LABS: Band Neutrophils % (manual) 30; Eosinophils % (manual) 1 (0-7); Lymphocytes % (manual) 4 (10.0-50.0); Metamyelocytes % 1; Monocytes % (manual) 10 (0-12)
[2020-10-30 14:12] VITALS: BP 129/67
[2020-10-30] MEDS: AMIODARONE 450mg/250ml AE 250 ML IV SCH (14:15)
[2020-10-30] MEDS ORDERED: OCTREOTIDE ACETATE 100 MCG/ML VL ONE (14:17)
[2020-10-30] MEDS ORDERED: SODIUM BICARBONATE 8.4% INJ 50ML SYRINGE ONE (14:17)
[2020-10-30] MEDS ORDERED: MIDAZOLAM DRIP 50 mg/50mL 50 ML IV ONE (14:17)
[2020-10-30] MEDS: SODIUM BICARBONATE 50ML VIAL 75 ML in SOD CHL 0.45% 1,000 ML IV SCH (14:39)
[2020-10-30 19:16] VITALS: BP 115/66
[2020-10-30] MEDS: ZOLPIDEM TARTRATE 5 MG TAB PO SCH (20:23)
[2020-10-30 22:32] VITALS: BP 130/67
[2020-10-31] VITALS (75 sets, daily range): BP systolic 68–145; BP diastolic 45–80
[2020-10-31] MEDS: PANTOPRAZOLE 40mg/50ML NS AE 50 ML IV SCH ×5 (00:15→20:15)
[2020-10-31] MEDS: SODIUM BICARBONATE 50ML VIAL 75 ML in SOD CHL 0.45% 1,000 ML IV SCH ×2 (00:46→11:32)
[2020-10-31] MEDS: AMIODARONE 450mg/250ml AE 250 ML IV SCH ×3 (05:15→20:15)
[2020-10-31] MEDS: GABAPENTIN 300 MG CAP PO SCH ×3 (06:00→21:47)
[2020-10-31] MEDS: MIDAZOLAM DRIP 50 mg/50mL 50 ML IV SCH ×2 (06:00→15:36)
[2020-10-31] MEDS: MIDODRINE HCL 10 MG TAB PO SCH ×3 (06:00→17:47)
[2020-10-31] MEDS: NOREPINEPHRINE 8 MG/250ML KIT 250 ML IV SCH ×2 (06:14→15:32)
[2020-10-31] MEDS: LACTULOSE 20Gm/30ML SOLN PO SCH ×3 (06:14→17:47)
[2020-10-31] MEDS: OCTREOTIDE ACETATE 100 MCG/ML VL SUBCUT SCH ×3 (06:14→21:48)
[2020-10-31 07:26] LABS: Hematocrit 37.9 % (41.0-53.0); Hemoglobin 12.7 g/dL (13.5-17.5); Mean Corpuscular Hgb Conc. 33.6 g/dL (32.0-36.0); Mean Corpuscular Volume 89.4 fL (80.0-100.0); Platelet Count (auto) 145 10^3/uL (140-450); Red Blood Cells 4.24 10^6/uL (4.5-5.90); Red Cell Distribution Width 16.5 % (11.8-14.3)
[2020-10-31 07:27] LABS: Basophils % (manual) 0 (0.0-2.0); Blast Cells 0; Metamyelocytes % 0; Promyelocytes % 0; Reactive Lymphocytes 0
[2020-10-31 07:29] LABS: Potassium 4.6 mmol/L (3.5-5.1)
[2020-10-31 07:35] LABS: Albumin 2.2 g/dL (3.4-5.0); BUN/Creatinine Ratio 24.6; Bilirubin, Total 3.3 mg/dL (0.2-1.0); Calcium 8.3 mg/dL (8.5-10.1); Total Protein 5.8 g/dL (6.4-8.2)
[2020-10-31] MEDS: InsuLIN REG 1unit/0.01ml Soln (100units/ml) SC SCH ×4 (08:35→22:00)
[2020-10-31] MEDS: ACCU-CHEK COMFORT CURVE STRIP VI SCH ×4 (08:35→21:48)
[2020-10-31 09:07] LABS: Band Neutrophils % (manual) 9; Eosinophils % (manual) 2 (0-7); Lymphocytes % (manual) 8 (10.0-50.0); Monocytes % (manual) 8 (0-12); Myelocytes % 1
[2020-10-31] MEDS ORDERED: MAGNESIUM SULF 50% 40 MEQ/10 ML VL IV ONE (09:13)
[2020-10-31] MEDS ORDERED: EPINEPHrine HCL 1 MG/10 ML SYRG IV ONE (09:13)
[2020-10-31] MEDS ORDERED: SODIUM BICARBONATE 8.4% INJ 50ML SYRINGE IV ONE (09:13)
[2020-10-31] MEDS: metroNIDAZOLE 500MG/100ML 100 ML IV SCH ×3 (09:40→21:47)
[2020-10-31] MEDS: TAMSULOSIN HYDROCHLORIDE 0.4 MG CAP PO SCH (09:41)
[2020-10-31] MEDS: rifAXIMin 550 MG TAB PO SCH ×2 (09:41→21:47)
[2020-10-31] MEDS: CEFEPIME 1 GM in SODIUM CHL 0.9% 50 ML IV SCH (14:16)
[2020-10-31] MEDS: VASOPRESSIN 50 UNITS in D5W 5% 247.5 ML IV SCH (20:00)
[2020-10-31] MEDS: ZOLPIDEM TARTRATE 5 MG TAB PO SCH (21:48)
[2020-11-01] VITALS (99 sets, daily range): BP systolic 70–118; BP diastolic 47–110
[2020-11-01] MEDS: LACTULOSE 20Gm/30ML SOLN PO SCH ×5 (00:08→22:06)
[2020-11-01] MEDS: PANTOPRAZOLE 40mg/50ML NS AE 50 ML IV SCH (01:15)
[2020-11-01] MEDS: MIDAZOLAM DRIP 50 mg/50mL 50 ML IV SCH ×2 (05:05→06:16)
[2020-11-01 05:24] LABS: Hematocrit 40.3 % (41.0-53.0); Hemoglobin 13.4 g/dL (13.5-17.5); Mean Corpuscular Hemoglobin 30.2 pg (28.0-32.0); Mean Corpuscular Hgb Conc. 33.3 g/dL (32.0-36.0); Mean Corpuscular Volume 90.7 fL (80.0-100.0); Platelet Count (auto) 143 10^3/uL (140-450); Red Blood Cells 4.44 10^6/uL (4.5-5.90); Red Cell Distribution Width 16.5 % (11.8-14.3); White Blood Cell 14.9 10^3/uL (4.4-10.8)
[2020-11-01 05:36] LABS: Basophils % (manual) 0 (0.0-2.0); Blast Cells 0; Eosinophils % (manual) 0 (0-7); Metamyelocytes % 0; Myelocytes % 0; Promyelocytes % 0; Reactive Lymphocytes 0
[2020-11-01 05:41] LABS: Albumin 2.1 g/dL (3.4-5.0); Calcium 8.5 mg/dL (8.5-10.1); Potassium 4.8 mmol/L (3.5-5.1)
[2020-11-01 05:46] LABS: BUN/Creatinine Ratio 27.5; Bilirubin, Total 3.2 mg/dL (0.2-1.0); Total Protein 6.2 g/dL (6.4-8.2)
[2020-11-01] MEDS: metroNIDAZOLE 500MG/100ML 100 ML IV SCH ×3 (06:18→22:05)
[2020-11-01] MEDS: ACCU-CHEK COMFORT CURVE STRIP VI SCH ×4 (06:27→22:07)
[2020-11-01] MEDS: InsuLIN REG 1unit/0.01ml Soln (100units/ml) SC SCH ×4 (06:28→22:46)
[2020-11-01] MEDS: OCTREOTIDE ACETATE 100 MCG/ML VL SUBCUT SCH ×3 (06:29→22:06)
[2020-11-01] MEDS: MIDODRINE HCL 10 MG TAB PO SCH ×3 (06:29→17:56)
[2020-11-01] MEDS: GABAPENTIN 300 MG CAP PO SCH ×3 (06:29→22:06)
[2020-11-01 06:34] LABS: Band Neutrophils % (manual) 10; Lymphocytes % (manual) 7 (10.0-50.0); Monocytes % (manual) 4 (0-12)
[2020-11-01] MEDS: TAMSULOSIN HYDROCHLORIDE 0.4 MG CAP PO SCH (09:19)
[2020-11-01] MEDS: SODIUM BICARBONATE 50ML VIAL 75 ML in SOD CHL 0.45% 1,000 ML IV SCH ×3 (09:19→21:52)
[2020-11-01] MEDS: rifAXIMin 550 MG TAB PO SCH ×2 (09:21→22:06)
[2020-11-01] MEDS: AMIODARONE 450mg/250ml AE 250 ML IV SCH (11:15)
[2020-11-01] MEDS: CEFEPIME 1 GM in SODIUM CHL 0.9% 50 ML IV SCH (14:52)
[2020-11-01] MEDS: VASOPRESSIN 50 UNITS in D5W 5% 247.5 ML IV SCH (20:00)
[2020-11-01] MEDS: ZOLPIDEM TARTRATE 5 MG TAB PO SCH (22:00)
[2020-11-02] VITALS (68 sets, daily range): BP systolic 68–135; BP diastolic 43–79
[2020-11-02] MEDS: AMIODARONE 450mg/250ml AE 250 ML IV SCH (02:15)
[2020-11-02 02:29] LABS: BUN/Creatinine Ratio 27.4; Calcium 8.2 mg/dL (8.5-10.1)
[2020-11-02 02:39] LABS: Potassium 5.6 mmol/L (3.5-5.1)
[2020-11-02 03:51] LABS: Creatinine, Urine 138 mg/dL (30.0-125.0); Sodium Urine < 5 mmol/L (40-220)
[2020-11-02 05:41] LABS: Albumin 1.9 g/dL (3.4-5.0); BUN/Creatinine Ratio 28.1; Bilirubin, Total 3.4 mg/dL (0.2-1.0); Calcium 8.1 mg/dL (8.5-10.1); Total Protein 6.2 g/dL (6.4-8.2)
[2020-11-02 05:51] LABS: Potassium 5.7 mmol/L (3.5-5.1)
[2020-11-02] MEDS: InsuLIN REG 1unit/0.01ml Soln (100units/ml) SC SCH ×2 (06:05→12:15)
[2020-11-02] MEDS: LACTULOSE 20Gm/30ML SOLN PO SCH ×2 (06:16→12:17)
[2020-11-02] MEDS: MIDODRINE HCL 10 MG TAB PO SCH ×2 (06:16→12:17)
[2020-11-02] MEDS: ACCU-CHEK COMFORT CURVE STRIP VI SCH ×2 (06:17→11:30)
[2020-11-02] MEDS: OCTREOTIDE ACETATE 100 MCG/ML VL SUBCUT SCH ×2 (06:17→14:00)
[2020-11-02] MEDS: GABAPENTIN 300 MG CAP PO SCH ×2 (06:17→14:00)
[2020-11-02] MEDS: SODIUM BICARBONATE 50ML VIAL 75 ML in SOD CHL 0.45% 1,000 ML IV SCH (06:30)
[2020-11-02] MEDS: metroNIDAZOLE 500MG/100ML 100 ML IV SCH ×2 (06:41→14:00)
[2020-11-02] MEDS ORDERED: CALCIUM GLUC 4.65meq/50ml D5AE 50 ML IV ONE (09:00)
[2020-11-02] MEDS ORDERED: DEXTROSE (50%) 50ML SYRG IV ONE (09:00)
[2020-11-02] MEDS ORDERED: InsuLIN REG 1unit/0.01ml Soln (100units/ml) IV ONE (09:00)
[2020-11-02] MEDS ORDERED: SODIUM BICARBONATE 8.4% INJ 50ML SYRINGE IV ONE (09:00)
[2020-11-02] MEDS: TAMSULOSIN HYDROCHLORIDE 0.4 MG CAP PO SCH (09:12)
[2020-11-02] MEDS: rifAXIMin 550 MG TAB PO SCH (09:13)
[2020-11-02 10:29] LABS: Hematocrit 39.4 % (41.0-53.0); Hemoglobin 12.9 g/dL (13.5-17.5); Mean Corpuscular Hemoglobin 29.5 pg (28.0-32.0); Mean Corpuscular Hgb Conc. 32.7 g/dL (32.0-36.0); Mean Corpuscular Volume 90.2 fL (80.0-100.0); Platelet Count (auto) 177 10^3/uL (140-450); Red Blood Cells 4.38 10^6/uL (4.5-5.90); Red Cell Distribution Width 16.8 % (11.8-14.3); White Blood Cell 19.9 10^3/uL (4.4-10.8)
[2020-11-02 10:39] LABS: Basophils % (manual) 0 (0.0-2.0); Blast Cells 0; Eosinophils % (manual) 0 (0-7); Metamyelocytes % 0; Promyelocytes % 0; Reactive Lymphocytes 0
[2020-11-02 10:44] LABS: INR 2.06 (0.9-1.15)
[2020-11-02 10:50] LABS: Band Neutrophils % (manual) 5; Lymphocytes % (manual) 2 (10.0-50.0); Monocytes % (manual) 12 (0-12); Myelocytes % 1
[2020-11-02] MEDS ORDERED: LORazepam 2MG/ML-1ML VIAL IV PRN (13:00)
[2020-11-02] MEDS ORDERED: SODIUM ZIRCONIUM CYCL 10 GM PAK PO SCH (14:00)
[2020-11-02] MEDS: CEFEPIME 1 GM in SODIUM CHL 0.9% 50 ML IV SCH (14:24)
[2020-11-02] MEDS: MORPHINE SULFATE 4 MG/ML SYR/VIAL IV PRN ×3 (15:31→16:39)
[2020-11-05] MEDS ORDERED: SODIUM ZIRCONIUM CYCL 10 GM PAK PO SCH (10:00)
== END 2020-11-02 17:26 | DRG 432 ==
LOC: ER 19:12 → TELE 10-25 05:45 → CATH ICU 10-31 07:03
PROVIDERS: ADMIT Internal Medicine; ATTEND Internal Medicine
PROC: 0W9B3ZZ Drainage of Left Pleural Cavity, Percutaneous Approach (ICD-10-PCS; 2020-10-27)
PROC: 0W9G3ZZ Drainage of Peritoneal Cavity, Percutaneous Approach (ICD-10-PCS; 2020-10-28)
PROC: 5A1945Z Respiratory Ventilation, 24-96 Consecutive Hours (ICD-10-PCS; principal; 2020-10-29)
PROC: 0BH17EZ Insertion of Endotracheal Airway into Trachea, Via Natural or Artificial Opening (ICD-10-PCS; 2020-10-29)
PROC: 30233N1 Transfusion of Nonautologous Red Blood Cells into Peripheral Vein, Percutaneous Approach (ICD-10-PCS; 2020-10-29)
PROC: 5A12012 Performance of Cardiac Output, Single, Manual (ICD-10-PCS; 2020-10-29)
DX: K74.69 Other cirrhosis of liver (principal); J96.01 Acute respiratory failure with hypoxia; K76.7 Hepatorenal syndrome; J96.02 Acute respiratory failure with hypercapnia; N17.9 Acute kidney failure, unspecified; I47.1 Supraventricular tachycardia; R18.8 Other ascites; I13.0 Hypertensive heart and chronic kidney disease with heart failure and stage 1 through stage 4 chronic kidney disease, or unspecified chronic kidney disease; I46.9 Cardiac arrest, cause unspecified; D72.825 Bandemia; N18.9 Chronic kidney disease, unspecified; N40.0 Benign prostatic hyperplasia without lower urinary tract symptoms; J44.9 Chronic obstructive pulmonary disease, unspecified; E87.5 Hyperkalemia; K72.90 Hepatic failure, unspecified without coma; E66.9 Obesity, unspecified; K21.9 Gastro-esophageal reflux disease without esophagitis; D64.9 Anemia, unspecified; Z20.822 Contact with and (suspected) exposure to COVID-19; M19.90 Unspecified osteoarthritis, unspecified site; I95.9 Hypotension, unspecified; Z66 Do not resuscitate; Z51.5 Encounter for palliative care; E88.09 Other disorders of plasma-protein metabolism, not elsewhere classified; Z90.49 Acquired absence of other specified parts of digestive tract; Z79.82 Long term (current) use of aspirin; Z68.33 Body mass index [BMI] 33.0-33.9, adult; Z79.899 Other long term (current) drug therapy; Z82.49 Family history of ischemic heart disease and other diseases of the circulatory system; Z83.3 Family history of diabetes mellitus; Z82.3 Family history of stroke; Z80.0 Family history of malignant neoplasm of digestive organs; Z80.1 Family history of malignant neoplasm of trachea, bronchus and lung; Z79.84 Long term (current) use of oral hypoglycemic drugs; E11.22 Type 2 diabetes mellitus with diabetic chronic kidney disease; I50.9 Heart failure, unspecified; K75.81 Nonalcoholic steatohepatitis (NASH); Z91.14 Patient's other noncompliance with medication regimen
CPT/HCPCS: 10022; 36415; 36600; 71045; 74176; 76700; 76775; 76942; 80048; 80053; 81001; 82140; 82570; 82805; 82962; 83615; 83735; 83880; 83986; 84132; 84260; 84300; 85007; 85025; 85027; 85379; 85610; 85730; 86850; 86900; 86901; 86920; 87070; 87081; 87205; 87426; 89051; 93005; 93306; 93970; 94002; 94003; G0378; J0330; J0610; J1815; J2250; J2405; J3430; J3490; J7060; P9047